=== PATIENT | male | born 1950 | race Two or more races ===

== ENCOUNTER 2018-10-16 17:49 | Emergency (ER) | payer OTHER, MEDICAID ==
[~2018-10-16] VITALS: Ht 167.6 cm; Wt 90.7 kg
[2018-10-16 18:18] VITALS: BP 162/78
[2018-10-16] MEDS ORDERED: TETRACAINE HCL 0.5% OPTH(EYE) SOLN 4ML LEFTEYE ONE (19:00)
[2018-10-16] MEDS ORDERED: FLUORESCEIN SOD 1 MG TEST STRIP EACHEYE ONE (19:00)
== END 2018-10-16 20:00 | disposition home or self-care (01) ==
LOC: ER 17:56
DX: B02.9 Zoster without complications (principal); H10.9 Unspecified conjunctivitis; E11.9 Type 2 diabetes mellitus without complications; I10 Essential (primary) hypertension

== ENCOUNTER 2025-04-13 01:30 | Inpatient (IN) | payer OTHER, MEDICAID ==
[~2025-04-13] VITALS: Ht 167.6 cm; Wt 81.8 kg
[2025-04-13] VITALS (53 sets, daily range): BP systolic 105–135; BP diastolic 51–71; PULSE 59–99; RESP 9–24; TEMP 97.7–99.1; O2SAT 91–100
--- NOTE | 2025-04-13 01:44 | ECG ---
[facility] Test Date: 2025-04-13 Test Time: 01:35:52 Pat Name: AYDE SHIELDS Department: ED Room: 0202T Gender: M Acid Strength Inspector: ALYSSA : 1950 Requested By: ANDREA RAINEY Order Number: [id number] Reading MD: Keegan Garrett Measurements Intervals Strang Rate: 71 P: 60 RI: 175 QRS: -98 QRSD: 165 T: 35 QT: 425 QTc: 462 Interpretive Statements Sinus rhythm RBBB and LAFB Electronically Signed On 04-15-2025 15:08:03 PDT by Keegan Garrett Please click the below link to view image of tracing.
--- NOTE | 2025-04-13 01:47 | ED.PDOC ---
HPI Comments 74-year-old male who came to ER due to chest pains. Patient does have history of hypertension, diabetes and MO. States he has been having intermittent episodes of diffuse chest pain since 4:00 p.m. yesterday, pressure, radiating to bilateral shoulders, associated nausea and shortness a breath. Patient was given 6 tablets of 81 mg aspirin prior to arrival to the ER Chief Complaint: Chest Pain Time Seen by MD: 01:46 Primary Care Provider: FLORENCE Wahl Notes: Nurses Notes Allergies: Coded Allergies: NO KNOWN ALLERGIES (Unverified , 09/08/15) Information Source: Patient Mode of Arrival: Ambulatory Severity: Moderate Timing: Hours Duration: Intermittent Prehospital treatment: ASA Location: Chest (R), Chest (L) Radiation: Shoulder (R), Shoulder (L) Quality: Pressure Onset: With Light Exertion Cardiac Risk Factors: HTN, Diabetes History of: Similar pain in past, MO Associated Signs and Symptoms: SOB, N/V Past Medical History PAST MEDICAL HISTORY: DM, HTN, MO Surgical History: Denies all surgeries Family History Family History: Reviewed,noncontributory to illness Social History Smoker: Non-Smoker Alcohol: Denies ETOH Use Drugs: Denies Drug Use Lives In: Home Constitutional: denies: chills, diaphoresis, fatigue, fever, malaise, sweats, weakness, others EENTM: denies: blurred vision, double vision, ear bleeding, ear discharge, ear drainage, ear pain, ear ringing, eye pain, eye redness, hearing loss, mouth pain, mouth swelling, nasal discharge, nose bleeding, nose congestion, nose pain , photophobia, tearing, throat pain, throat swelling, voice changes, others Respiratory: reports: SOB at rest, shortness of breath; denies: cough, hemoptysis, orthopnea, SOB with excertion, stridor, wheezing, others Cardiovascular: reports: chest pain; denies: dizzy spells, diaphoresis, Dyspnea on exertion, edema, irregular heart beat, left arm pain, lightheadedness, palpitations, PND, syncope, others Gastrointestinal: denies: abdomen distended, abdominal pain, blood streaked bowels, constipated, diarrhea, dysphagia, difficulty swallowing, hematemesis, melena, nausea, poor appetite, poor fluid intake, rectal bleeding, rectal pain, vomiting, others Genitourinary: denies: burning, dysuria, flank pain, frequency, hematuria, incontinence, penile discharge, penile sore, pain, testicle pain, testicle swelling, urgency, others Neurological: denies: dizziness, fainting, headache, left sided numbness, left sided weakness, numbness, paresthesia, pre-existing deficit, right sided numbness, right sided weakness, seizure, speech problems, tingling, tremors, weakness, others Musculoskeletal: denies: back pain, gout, joint pain, joint swelling, muscle pain, muscle stiffness, neck pain, others Integumetry: denies: bruises, change in color, change in hair/nails, dryness, laceration, lesions, lumps, rash, wounds, others Allergic/Immunocompromised: denies: Difficulty Healing, Frequent Infections, Hives, Itching, others Hematologic/Lymphatic: denies: anemia, blood clots, easy bleeding, easy bruising, swollen glands, others Endocrine: denies: excessive hunger, excessive sweating, excessive thirst, excessive urination, flushing, intolerance to cold, intolerance to heat, unexplained weight gain, unexplained weight loss, others Psychiatric: denies: anxiety, bipolar disorder, depression, hopeless, panic disorder, schizophrenia, sleepless, suicidal, others Physical Exam General Appearance: No Apparent Distress, Normal HEENT: Normal ENT Inspection, Pharynx Normal, TMs Normal Neck: Full Range of Motion, Non-Tender, Normal, Normal Inspection Respiratory: Chest Non-Tender, Lungs Clear, No Accessory Muscle Use, No Respiratory Distress, Normal Breath Sounds Cardiovascular: No Edema, No JVD, No Murmur, No Gallop, Normal Peripheral Pulses, Regular Rate/Rhythm Breast Exam: Deferred Gastrointestinal: No Organomegaly, Non Tender, No Pulsatile Mass, Normal Bowel Sounds, Soft Genitalia: Deferred Pelvic: Deferred Rectal: Deferred Extremities: No calf tenderness, Normal capillary refill, Normal inspection, No rmal range of motion, Non-tender, No pedal edema Musculoskeletal : Apperance: Normal Neurologic: Alert, laborer 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 Was a procedure done?: No CP Differential Dx Differential Diagnosis: Angina, Anxiety / Panic Attack Differential Diagnosis: Angina, Chest Wall Pain, Costochondritis, Esophageal reflux/spasm, Gastritis, Myocardial Infarction X-Ray, Labs, Meds, VS Vital Signs Date Time Temp Pulse Resp B/P (MAP) Pulse Ox O2 Delivery O2 Flow Rate FiO2 04/13/25 03:20 63 04/13/25 03:09 98.1 61 16 141/72 (95) 95 98.1 04/13/25 02:39 64 04/13/25 02:35 61 16 141/72 04/13/25 02:05 66 22 156/68 04/13/25 01:51 Nasal Cannula* 2 28 04/13/25 01:51 98.4 70 22 156/68 (97) 95 98.4 04/13/25 01:47 71 04/13/25 01:35 71 04/13/25 01:30 98.2 71 18 156/68 95 98.2 Lab Test 04/13/25 03:03 04/13/25 01:54 Range/Units White Blood Count Pending 13.5 H 4.4-10.8 10^3/uL Red Blood Count Pending 5.54 4.5-5.90 10^6/uL Hemoglobin Pending 17.5 13.5-17.5 g/dL Hematocrit Pending 50.3 41.0-53.0 % Mean Corpuscular Volume Pending 90.9 80.0-100.0 fL Mean Corpuscular Hemoglobin Pending 31.6 28.0-32.0 pg Mean Corpuscular Hemoglobin Concent Pending 34.8 32.0-36.0 g/dL Red Cell Distribution Width Pending 13.8 11.8-14.3 % Platelet Count Pending 170 140-450 10^3/uL Mean Platelet Volume Pending 8.4 6.9-10.8 fL Neutrophils (%) (Auto) Pending 83.8 H 37.0-80.0 % Lymphocytes (%) (Auto) Pending 9.7 L 10.0-50.0 % Monocytes (%) (Auto) Pending 5.9 0.0-12.0 % Basophils (%) (Auto) Pending 0.4 0.0-2.0 % Neutrophils # (Auto) Pending 11.3 H 1.6-8.6 10 ^3/uL Lymphocytes # (Auto) Pending 1.3 0.4-5.4 10 ^3/uL Monocytes # (Auto) Pending 0.8 0-1.3 10 ^3/uL Prothrombin Time Pending Prothrombin Time INR Pending Activated Partial Thromboplast Time Pending Sodium Level Pending 135 L 136-145 mmol/L Potassium Level Pending 4.3 3.5-5.1 mmol/L Chloride Level Pending 97 L 98-107 mmol/L Carbon Dioxide Level Pending 26 20-31 mmol/L Anion Gap Pending 12 5-15 Blood Urea Nitrogen Pending 11 9-23 mg/dL Creatinine Pending 1.01 0.700-1.30 mg/dL Glomerular Filtration Rate Calc Pending 79 >90 mL/min BUN/Creatinine Ratio Pending 10.9 10.0-20.0 Serum Glucose Pending 173 H 74-106 mg/dL Calcium Level Pending 9.4 8.7-10.4 mg/dL Total Bilirubin Pending 1.8 H 0.2-1.0 mg/dL Aspartate Amino Transferase (AST) Pending 281 H 13-40 U/L Alanine Aminotransferase (ALT) Pending 48 H 7-40 U/L Alkaline Phosphatase Pending 56 46-116 U/L Troponin I High Sensitivity Pending > 71838 *H </=54 ng/L Total Protein Pending 7.7 5.7-8.2 g/dL Albumin Pending 4.9 H 3.2-4.8 g/dL Eosinophils (%) (Auto) 0.2 0.0-7.0 % Eosinophils # (Auto) 0 0-0.8 10 ^3/uL Basophils # (Auto) 0 0-0.2 10 ^3/uL Nucleated Red Blood Cells 0.1 % B-Type Natriuretic Peptide Pending Lipase 37 12-53 U/L Current Medications Medications (Trade) Dose Ordered Sig/Marlin Route Start Time Stop Time Status Last Admin Ondansetron HCl (Zofran) 4 mg ONCE ONCE IV 04/13/25 01:45 04/13/25 01:46 DC 04/13/25 02:06 Hydromorphone HCl (Dilaudid Injection) 0.5 mg ONCE ONCE IV 04/13/25 01:45 04/13/25 01:46 DC 04/13/25 02:05 Heparin Sodium (Porcine) 4,000 units ONCE ONCE IV 04/13/25 03:30 04/13/25 03:31 DC 04/13/25 03:37 CHEST RADIOGRAPH Indication: chest pain Technique: Single frontal view of the chest was obtained COMPARISON: None FINDINGS: Lines and Tubes: None Lungs: Clear Pleura: No effusion. No pneumothorax. Cardiomediastinal contours: Unremarkable Bones: Unremarkable IMPRESSION: 1. No acute disease. Time of 1ST Reevaluation: 01:43 Reevaluation 1ST: Unchanged Patient Education/Counseling: Diagnosis, Treatment Family Education/Counseling: Diagnosis, Treatment SEPSIS Sepsis Screen Physician Orders Electrocardigram (04/13/25 02:42) Electrocardigram (04/13/25 04:42) B-Type Natriuretic Peptide (04/13/25 01:42) Chest Portable (04/13/25 01:42) Troponin-I Hs (04/13/25 03:36) Troponin-I Hs (04/13/25 05:36) * Cardiology Consult (04/13/25 03:13) Platelet Monitoring (04/13/25 03:30) Heparin Per Standardized Proce (04/13/25 03:30) Discontinue All Im Injections (04/13/25 03:30) PTPTT (04/13/25 03:30) Heparin Drip/D5w 100units/Ml (04/13/25 03:30) Stat Ekg For Chest Pain (04/13/25 03:30) Complete Blood Count (04/13/25 03:37) Comprehensive Metabolic Panel (04/13/25 03:37) Losartan Tablet (Cozaar Tablet) (04/13/25 10:00) Atorvastatin (Lipitor) (04/13/25 22:00) Famotidine Injection (Pepcid Injection) (04/13/25 10:00) Metoprolol Tartrate Tablet (Lopressor Ta (04/13/25 10:00) Aspirin Tablet (04/13/25 10:00) Cl Left Heart Cath (04/13/25 03:56) Vital Signs Date Time Temp Pulse Resp B/P (MAP) Pulse Ox O2 Delivery O2 Flow Rate FiO2 04/13/25 03:20 63 04/13/25 03:09 98.1 61 16 141/72 (95) 95 98.1 04/13/25 02:39 64 04/13/25 02:35 61 16 141/72 04/13/25 02:05 66 22 156/68 04/13/25 01:51 Nasal Cannula* 2 28 04/13/25 01:51 98.4 70 22 156/68 (97) 95 98.4 04/13/25 01:47 71 04/13/25 01:35 71 04/13/25 01:30 98.2 71 18 156/68 95 98.2 Laboratory Tests Test 04/13/25 01:54 04/13/25 03:03 White Blood Count 13.5 10^3/uL (4.4-10.8) H Pending Medications Medications Dose Ordered Sig/Marlin Route Start Time Stop Time Status Last Admin Dose Admin Heparin Sodium (Porcine) 4,000 units ONCE ONCE IV 04/13/25 03:30 04/13/25 03:31 DC 04/13/25 03:37 Hydromorphone HCl 0.5 mg ONCE ONCE IV 04/13/25 01:45 04/13/25 01:46 DC 04/13/25 02:05 Ondansetron HCl 4 mg ONCE ONCE IV 04/13/25 01:45 04/13/25 01:46 DC 04/13/25 02:06 Departure 1 Departure Time of Disposition: 04:26 (Patient presented with chest pain that began earlier today. Patient initially reported that his chest pain was much improved and he is feeling better upon arrival. Initial EKG with right bundle and left bundle and some ST depressions and elevations. Given patient's well appearance and has a repeat EKG. Patient's repeat EKGs had worsening ST elevations and depressions. [place] [address]. Activated a STEMI. Patient was emergently taken to the laboratory worker.) Impression: Primary Impression: STEMI (ST elevation myocardial infarction) Qualified Codes: I21.3 - ST elevation (STEMI) myocardial infarction of unspecified site Additional Impression: Acute chest pain Disposition: ADMITTED INPATIENT Admit to: Train Announcer Condition: Critical Critical Care Note Critical Care Time?: Yes (35 min-critical care time only) Critical care comment: STEMI Authorized and Performed by: Andrea Rainey MD Total critical care time: Approximately 47 minutes Due to a high probability of clinically significant, life threatening deterioration, the patient required my highest level of preparedness to intervene emergently and I personally spent this critical care time directly and personally managing the patient. This critical care time included obtaining a history; examining the patient; pulse oximetry; ordering and review of studies; arranging urgent treatment with development of a management plan; evaluation of patient's response to treatment; frequent reassessment; and, discussions with other providers. This critical care time was performed to assess and manage the high probability of imminent, life-threatening deterioration that could result in multi-organ failure. It was exclusive of separately billable procedures and treating other patients and teaching time. Please see my other sections and the rest of the note for further information on patient assessment and treatment. Stability Stability form required: No Heart Score Heart Score: Heart Score Response (Comments) Value History Moderate Suspicious [address]-Deviation 2 Age >65 2 Risk Factors >3 or Hx ASHD 2 Troponin Normal limit 0 Total 7 I personally scribed for ANDREA RAINEY MD ([facility] on 04/13/25 at 01:47. Electronically submitted by Romero Moreno ([email or web address]). I personally scribed for ANDREA RAINEY MD ([email or web address]) on 04/13/25 at 02:55. Electronically submitted by Romero Moreno ([email or web address]). ANDREA RAINEY MD Apr 13, 2025 01:47
[2025-04-13 02:00] LABS: Hematocrit 50.3 % (41.0-53.0); Hemoglobin 17.5 g/dL (13.5-17.5); Mean Corpuscular Hemoglobin 31.6 pg (28.0-32.0); Mean Corpuscular Volume 90.9 fL (80.0-100.0); Nucleated Red Blood Cells % 0.1 %
[2025-04-13] MEDS: HYDROmorphone HCL 2 MG/ML VL/or syr IV ONE (02:05)
[2025-04-13] MEDS: ONDANSETRON HCL 4 MG/2 ML VIAL IV ONE (02:06)
[2025-04-13 02:17] LABS: Alkaline Phosphatase 56 U/L (46-116); Anion Gap 12 (5-15); BUN/Creatinine Ratio 10.9 (10.0-20.0); Blood Urea Nitrogen 11 mg/dL (9-23); Calcium 9.4 mg/dL (8.7-10.4); Carbon Dioxide 26 mmol/L (20-31); Potassium 4.3 mmol/L (3.5-5.1); Total Protein 7.7 g/dL (5.7-8.2)
[2025-04-13 02:22] LABS: Alanine Aminotransferase 48 U/L (7-40); Albumin 4.9 g/dL (3.2-4.8); Bilirubin, Total 1.8 mg/dL (0.2-1.0); Chloride 97 mmol/L (98-107); Glucose 173 mg/dL (74-106); Sodium 135 mmol/L (136-145)
--- NOTE | 2025-04-13 02:25 | DVH ---
CHEST RADIOGRAPH Indication: chest pain Technique: Single frontal view of the chest was obtained COMPARISON: None FINDINGS: Lines and Tubes: None Lungs: Clear Pleura: No effusion. No pneumothorax. Cardiomediastinal contours: Unremarkable Bones: Unremarkable IMPRESSION: 1. No acute disease.
[2025-04-13] MEDS: HEPARIN SODIUM (PORCINE) 5000 UNITS/ML 1ML VIAL IV ONE (03:37)
[2025-04-13] MEDS ORDERED: HYDROcodone-ACET 5/325MG TAB PO PRN ×2 (04:00→06:00)
[2025-04-13] MEDS ORDERED: DEXTROSE (50%) 50ML SYRG IV PRN (04:00)
[2025-04-13] MEDS ORDERED: ACETAMINOPHEN 325 MG TAB PO PRN (04:00)
[2025-04-13] MEDS ORDERED: NITROGLYCERIN 0.4 MG SL TAB SL PRN (04:00)
[2025-04-13] MEDS ORDERED: MORPHINE SULFATE INJ 2 MG/ml SYRG IV PRN (04:00)
[2025-04-13] MEDS ORDERED: ONDANSETRON HCL 4 MG/2 ML VIAL IV PRN ×2 (04:00→06:00)
[2025-04-13] MEDS ORDERED: DOCUSATE SOD 100 MG CAP PO PRN (04:00)
[2025-04-13] MEDS: IODIXANOL 320MG/ML 100ML BTL IV ONE ×3 (04:01→05:19)
[2025-04-13] MEDS: HEPARIN IN NS 1000Units/500mL 1,500 ML ONE (04:01)
[2025-04-13] MEDS: MIDAZOLAM HCL 2MG/2ML 2ml VIAL (1mg/ml) ONE (04:02)
[2025-04-13] MEDS: LIDOCAINE 2%HCL (LOCAL ANESTH.) INJ 20ML MDV ONE ×2 (04:02→05:34)
[2025-04-13] MEDS: fentaNYL CITRATE 100 MCG/2 ML VL ONE (04:02)
[2025-04-13] MEDS: ANGIOMAX 250 MG VIAL IV ONE (04:03)
[2025-04-13] MEDS: SODIUM CHL 0.9% 50 ML ONE (04:03)
--- NOTE | 2025-04-13 04:03 | DVHHP2 ---
History of Present Illness Reason for Visit: Acute chest pain History of Present Illness The patient is a 74-year-old male with past medical history of [place], diabetes mellitus, and hypertension who presented to [facility] ED with complaint of chest pain. Patient reports he has been experiencing intermittent episode of diffuse chest pain for the past 1 day, rating 8/10 numeric scale, pressure-like sensation, radiating to bilateral shoulder, associated with nausea, shortness of breaths, getting worse that prompted this visit. Patient was seen and evaluated in the ED, laboratory data shows WBC 13.5, platelets 170, sodium 135, potassium 4.3, BUN 11, creatinine 1.01, glucose 173, calcium 9.4, AST 281, ALT 48, troponin > 91010, lipase 37, Initial EKG with right bundle and left bundle and some ST depressions and elevations. Patient's repeat EKGs had worsening ST [place]ations and depressions [place] [address], activated code STEMI. Patient was emergently taken to the organic lab worker. Chest x-ray showed no acute disease. On my assessment, patient denied chest pain at this moment, no headache, dizziness, diaphoresis, currently on oxygen, no diarrhea, nausea, vomiting, fever, chills. Patient was admitted for further evaluation and medical management. Past Medical History DM, HTN, [place] Past Surgical History Denies all surgeries Family History Reviewed, noncontributory to the management of this case. Past Social History The patient lives at home, denies smoking, alcohol or illicit drugs abuse. Review of Systems Constitutional: Yes: Weakness; No: Fever, Chills, Sweats, Malaise, Other Eyes: No: Pain, Vision change, Conjunctivae inflammation, Eyelid inflammation, Other, Redness ENT: No: Ear pain, Ear discharge, Nose pain, Nose discharge, Nose congestion, Mouth pain, Mouth swelling, Throat pain, Throat swelling, Other Respiratory: Shortness of breath, Other (SOB at rest); No: Cough, Dry, SOB with excertion, Wheezing, Hemoptysis, Pleuritic Pain, Sputum, Wheezing Cardiovascular: Chest Pain; No: Palpitations, Orthopnea, Paroxysmal Noc. Dyspnea, Edema, Lt Headedness, Other Gastrointestinal: No: Nausea, Vomiting, Abdominal Pain, Diarrhea, Constipation, Melena, Hematochezia, Other Genitourinary: No Dysuria, No Frequency, No Incontinence, No Hematuria, No Retention, No Other Musculoskeletal: No: other, neck pain, shoulder pain, arm pain, back pain, hand pain, leg pain, foot pain Skin: No: Rash, Lesions, Jaundice, Bruising, Other Neurological: No: Weakness, Numbness, Incoordination, Change in speech, Confusion, Seizures, Other Allergies: Coded Allergies: NO KNOWN ALLERGIES (Unverified , 09/08/15) Medications Current Medications Medications Dose Ordered Sig/Marlin Route Start Time Stop Time Status Last Admin Dose Admin Heparin Sodium/ Dextrose 250 ml @ 9.6 mls/hr Q24H IV 04/13/25 03:30 UNV Exam Vital Signs Vital Signs Date Time Temp Pulse Resp B/P (MAP) Pulse Ox O2 Delivery O2 Flow Rate FiO2 04/13/25 03:20 63 04/13/25 03:09 98.1 16 141/72 (95) 95 98.1 04/13/25 01:51 Nasal Cannula* 2 28 General Appearance: Alert, Oriented X3, Cooperative, No acute distress HEENT: Atraumatic, PERRLA, EOMI, Mucous membr. moist/pink Respiratory: Normal air movement Cardiovascular: Regular rate, Normal S1, Normal S2, No murmurs Abdominal: Normal bowel sounds, Soft, No tenderness, No hepatospenomegaly, No masses Extremities: No clubbing, No cyanosis, No edema, Normal pulses, No tenderness/swelling Skin: No rashes, No breakdown, No significant lesion Neuro: Normal speech, Normal tone, Sensation intact, Cranial nerves 3-12 NL, Reflexes 2+, Other (Generalized weakness) Psych/Mental Status: Mental status NL, Mood NL Labs/Xrays Labs Test 04/13/25 03:03 04/13/25 01:54 Range/Units White Blood Count 13.5 H 4.4-10.8 10^3/uL Red Blood Count 5.54 4.5-5.90 10^6/uL Hemoglobin 17.5 13.5-17.5 g/dL Hematocrit 50.3 41.0-53.0 % Mean Corpuscular Volume 90.9 80.0-100.0 fL Mean Corpuscular Hemoglobin 31.6 28.0-32.0 pg Mean Corpuscular Hemoglobin Concent 34.8 32.0-36.0 g/dL Red Cell Distribution Width 13.8 11.8-14.3 % Platelet Count 170 140-450 10^3/uL Mean Platelet Volume 8.4 6.9-10.8 fL Neutrophils (%) (Auto) 83.8 H 37.0-80.0 % Lymphocytes (%) (Auto) 9.7 L 10.0-50.0 % Monocytes (%) (Auto) 5.9 0.0-12.0 % Eosinophils (%) (Auto) 0.2 0.0-7.0 % Basophils (%) (Auto) 0.4 0.0-2.0 % Neutrophils # (Auto) 11.3 H 1.6-8.6 10 ^3/uL Lymphocytes # (Auto) 1.3 0.4-5.4 10 ^3/uL Monocytes # (Auto) 0.8 0-1.3 10 ^3/uL Eosinophils # (Auto) 0 0-0.8 10 ^3/uL Basophils # (Auto) 0 0-0.2 10 ^3/uL Nucleated Red Blood Cells 0.1 % Sodium Level 135 L 136-145 mmol/L Potassium Level 4.3 3.5-5.1 mmol/L Chloride Level 97 L 98-107 mmol/L Carbon Dioxide Level 26 20-31 mmol/L Anion Gap 12 5-15 Blood Urea Nitrogen 11 9-23 mg/dL Creatinine 1.01 0.700-1.30 mg/dL Glomerular Filtration Rate Calc 79 >90 mL/min BUN/Creatinine Ratio 10.9 10.0-20.0 Serum Glucose 173 H 74-106 mg/dL Calcium Level 9.4 8.7-10.4 mg/dL Total Bilirubin 1.8 H 0.2-1.0 mg/dL Aspartate Amino Transferase (AST) 281 H 13-40 U/L Alanine Aminotransferase (ALT) 48 H 7-40 U/L Alkaline Phosphatase 56 46-116 U/L Total Protein 7.7 5.7-8.2 g/dL Albumin 4.9 H 3.2-4.8 g/dL Lipase 37 12-53 U/L PATIENT: AYDE SHIELDS ACCT: [id number] UNIT: [id number] : 1950 LOC: ER ROOM / BED: / AGE / SEX: 74 / M ADM STATUS: REG ER SERVICE 1 ORDERING PHYSICIAN: ANDREA RAINEY MD PROCEDURE(s): CXRP - CHEST PORTABLE REASON: chest pain ORDER NUMBER(s): [id number], ACCESSION NUMBER(s): [id number] CHEST RADIOGRAPH Indication: chest pain Technique: Single frontal view of the chest was obtained COMPARISON: None FINDINGS: Lines and Tubes: None Lungs: Clear Pleura: No effusion. No pneumothorax. Cardiomediastinal contours: Unremarkable Bones: Unremarkable IMPRESSION: 1. No acute disease. SEPSIS Sepsis Screen Date sepsis recognized/suspect: Apr 13, 2025 Time Sepsis recognized/suspect: 015 Recent Procedure: No On Antibiotic Therapy: No Respiratory Rate >20: No Heart Rate >90: No Temp<36 C (96.8 F) or >38.3 C: No SBP <90 or MAP <65 mmHG: No New Acute Mental Status Change: No Is the patient on CPAP, BIPAP,: No Physician Orders Electrocardigram (04/13/25 02:42) Electrocardigram (04/13/25 04:42) B-Type Natriuretic Peptide (04/13/25 01:42) Chest Portable (04/13/25 01:42) Troponin-I Hs (04/13/25 03:36) Troponin-I Hs (04/13/25 05:36) * Cardiology Consult (04/13/25 03:13) Platelet Monitoring (04/13/25 03:30) Heparin Per Standardized Proce (04/13/25 03:30) Discontinue All Im Injections (04/13/25 03:30) PTPTT (04/13/25 03:30) Heparin Drip/D5w 100units/Ml (04/13/25 03:30) Stat Ekg For Chest Pain (04/13/25 03:30) Complete Blood Count (04/13/25 03:37) Comprehensive Metabolic Panel (04/13/25 03:37) Losartan Tablet (Cozaar Tablet) (04/13/25 10:00) Atorvastatin (Lipitor) (04/13/25 22:00) Famotidine Injection (Pepcid Injection) (04/13/25 10:00) Metoprolol Tartrate Tablet (Lopressor Ta (04/13/25 10:00) Aspirin Tablet (04/13/25 10:00) Cl Left Heart Cath (04/13/25 03:56) Glucose Blood (Accu-Chek Comfort Curve T (04/13/25 07:00) Mild Sliding Scale (04/13/25 07:00) Dextrose 50% Syringe (04/13/25 04:00) Admit (04/13/25 03:59) Allergies (04/13/25 03:59) Code Status (04/13/25 03:59) 0.9% Ns 1000 Ml (04/13/25 04:00) Oxygen Per Hour (04/13/25 03:59) Hydrocodone-Acet 5/325mg Tab (Elrod 5/32 (04/13/25 04:00) Ondansetron Hcl (Zofran) (04/13/25 04:00) Docusate Sodium Capsule (Colace Capsule) (04/13/25 04:00) Fall Risk Precautions In Place QSHIFT (04/13/25 03:59) Complete Blood Count (04/14/25 04:00) Comprehensive Metabolic Panel (04/14/25 04:00) Cardiac Diet-2gna,Lofat,Lochol (04/13/25 Breakfast) Condition: Critical (04/13/25 03:59) Acetaminophen Tablet (Tylenol Tablet) (04/13/25 04:00) Maintain Bed Rest (04/13/25 03:59) Sequential Compression Device (04/13/25 ) Nitroglycerin Sublingual (Ntrostat Subli (04/13/25 04:00) Vital Signs Date Time Temp Pulse Resp B/P (MAP) Pulse Ox O2 Delivery O2 Flow Rate FiO2 04/13/25 03:20 63 04/13/25 03:09 98.1 61 16 141/72 (95) 95 98.1 04/13/25 02:39 64 04/13/25 02:35 61 16 141/72 04/13/25 02:05 66 22 156/68 04/13/25 01:51 Nasal Cannula* 2 28 04/13/25 01:51 98.4 70 22 156/68 (97) 95 98.4 04/13/25 01:47 71 04/13/25 01:35 71 04/13/25 01:30 98.2 71 18 156/68 95 98.2 Laboratory Tests Test 04/13/25 01:54 White Blood Count 13.5 10^3/uL (4.4-10.8) H Medications Medications Dose Ordered Sig/Marlin Route Start Time Stop Time Status Last Admin Dose Admin Heparin Sodium (Porcine) 4,000 units ONCE ONCE IV 04/13/25 03:30 04/13/25 03:31 DC 04/13/25 03:37 4,000 UNITS Hydromorphone HCl 0.5 mg ONCE ONCE IV 04/13/25 01:45 04/13/25 01:46 DC 04/13/25 02:05 0.5 MG Ondansetron HCl 4 mg ONCE ONCE IV 04/13/25 01:45 04/13/25 01:46 DC 04/13/25 02:06 4 MG Assessment/Plan Assessment/Plan Acute chest pain STEMI (ST elevation myocardial infarction) Hyperglycemia Leukocytosis, unspecified Generalized weakness Elevated liver enzymes ST elevation (STEMI) myocardial infarction of unspecified site Plan 1. Admit to intensive care unit 2. Breathing treatment 3. Pain control management 4. IV antibiotic management 5. Management of fluids and electrolytes 6. Consultation for Cardiology/GI 7. Diagnostic test chest x-ray 8. DVT prophylaxis-on heparin drip 9. Repeat labs CBC, CMP in a.m. 10. Home medication reviewed and reconciled 11. Continue with current medical management 12. Treatment plan discussed with patient and RN. Patient verbalized understanding. Plan discussed with: Patient, Other (RN) My Orders Orders - MALCOLM GOLDBERG DNP Procedure Category Date Status Time Complete Blood Count LAB 04/13/25 Verified 03:37 Comprehensive LAB 04/13/25 Verified Metabolic Panel 03:37 Losartan Tablet PHA 04/13/25 Verified (Cozaar Tablet) 10:00 Atorvastatin (Lipitor) PHA 04/13/25 Verified 22:00 Famotidine Injection PHA 04/13/25 Verified (Pepcid Injection) 10:00 Metoprolol Tartrate PHA 04/13/25 Verified Tablet (Lopressor Ta 10:00 Aspirin Tablet PHA 04/13/25 Verified 10:00 Glucose Blood PHA 04/13/25 Verified (Accu-Chek Comfort 07:00 Mild Sliding Scale PHA 04/13/25 Verified 07:00 Dextrose 50% Syringe PHA 04/13/25 Verified 04:00 Admit ADMIT 04/13/25 Verified 03:59 Allergies LETTY 04/13/25 Verified 03:59 Code Status CODE 04/13/25 Verified 03:59 0.9% Ns 1000 Ml PHA 04/13/25 Verified 04:00 Oxygen Per Hour RT 04/13/25 Verified 03:59 Hydrocodone-Acet PHA 04/13/25 Verified 5/325mg Tab (Elrod 04:00 Ondansetron Hcl PHA 04/13/25 Verified (Zofran) 04:00 Docusate Sodium PHA 04/13/25 Verified Capsule (Colace 04:00 Fall Risk Precautions LETTY 04/13/[address] 03:59 Complete Blood Count LAB 04/14/25 Verified 04:00 Comprehensive LAB 04/14/25 Verified Metabolic Panel 04:00 Cardiac DIET 04/13/25 Verified Diet-2gna,Lofat,Lochol Breakfast Condition: Critical LETTY 04/13/25 Verified 03:59 Acetaminophen Tablet PHA 04/13/25 Verified (Tylenol Tablet) 04:00 Maintain Bed Rest LETTY 04/13/25 Verified 03:59 Sequential LETTY 04/13/25 Verified Compression Device Nitroglycerin PHA 04/13/25 Verified Sublingual (Ntrostat 04:00 Problem List: (1) Acute chest pain (2) STEMI (ST elevation myocardial infarction) (3) Hyperglycemia (4) Leukocytosis, unspecified (5) Elevated liver enzymes (6) Generalized weakness (7) ST elevation (STEMI) myocardial infarction of unspecified site Date of Service: Apr 13, 2025 Billing Provider: MALCOLM GOLDBERG DNP Common Visit Codes: [id number] INP/OBS CARE (HIGH) MALCOLM GOLDBERG DNP Apr 13, 2025 04:03
[2025-04-13 04:26] LABS: Hematocrit 48.6 % (41.0-53.0); Hemoglobin 16.9 g/dL (13.5-17.5); Mean Corpuscular Hemoglobin 31.7 pg (28.0-32.0); Mean Corpuscular Volume 91.5 fL (80.0-100.0); Nucleated Red Blood Cells % 0.1 %
[2025-04-13 04:44] LABS: Albumin 4.5 g/dL (3.2-4.8); Alkaline Phosphatase 51 U/L (46-116); Anion Gap 16 (5-15); BUN/Creatinine Ratio 17.6 (10.0-20.0); Blood Urea Nitrogen 15 mg/dL (9-23); Calcium 9.0 mg/dL (8.7-10.4); Carbon Dioxide 21 mmol/L (20-31); Chloride 99 mmol/L (98-107); Potassium 4.3 mmol/L (3.5-5.1); Total Protein 6.8 g/dL (5.7-8.2)
[2025-04-13] MEDS: EPTIFIBATIDE INJ (2MG/ML) 10ML VIAL IV ONE (05:02)
[2025-04-13 05:12] LABS: Alanine Aminotransferase 49 U/L (7-40); Bilirubin, Total 1.6 mg/dL (0.2-1.0); Glucose 159 mg/dL (74-106); Sodium 136 mmol/L (136-145)
[2025-04-13 05:26] LABS: INR 1.03 (0.9-1.15); Partial Thromboplastin Time 31.6 SEC (24.5-34.5); Prothrombin Time 10.9 sec (9.3-11.8)
[2025-04-13] MEDS: TICAGRELOR 90 MG TAB ONE (05:27)
[2025-04-13] MEDS ORDERED: METOPROLOL TARTRATE 25 MG TAB PO SCH (06:00)
[2025-04-13] MEDS ORDERED: PANTOPRAZOLE 40 MG TAB PO SCH (06:00)
[2025-04-13] MEDS ORDERED: HEPARIN DRIP/D5W 100UNITS/ML 250 ML IV SCH (06:00)
[2025-04-13] MEDS: InsuLIN REG 1unit/0.01ml Soln (100units/ml) SC SCH (07:00)
--- NOTE | 2025-04-13 07:10 | ECG ---
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
[2025-04-13] MEDS: ACCU-CHEK COMFORT CURVE STRIP VI SCH (07:17)
[2025-04-13] MEDS: METOPROLOL TARTRATE 25 MG TAB PO SCH (07:39)
[2025-04-13] MEDS: ENOXAPARIN SOD 40 MG/0.4 ML SYRINGE SC SCH (08:22)
[2025-04-13] MEDS: FAMOTIDINE (10MG/ML) 2ML VL IV SCH (08:22)
[2025-04-13] MEDS: LOSARTAN POTASSIUM 50 MG TAB PO SCH (08:23)
[2025-04-13] MEDS: TICAGRELOR 90 MG TAB PO SCH (08:23)
[2025-04-13] MEDS: SODIUM CHLORIDE 0.9% 1,000 ML IV SCH (09:41)
[2025-04-13] MEDS ORDERED: TICAGRELOR 90 MG TAB PO SCH (10:00)
[2025-04-13] MEDS ORDERED: ENOXAPARIN SOD 40 MG/0.4 ML SYRINGE SC SCH (10:00)
[2025-04-13] MEDS ORDERED: ASPirin-EC 81 mg tab PO SCH (10:00)
--- NOTE | 2025-04-13 17:04 | DVHINCON2 ---
Date of service: Apr 13, 2025 Referring Physician Kaye Stratton Reason for Consultation Elevated liver enzymes History of Present Illness The patient is a 74-year-old male with past medical history of [place], diabetes mellitus, and hypertension who presented to [facility] coplaints of intermittent episodes of diffuse chest pain for the past 1 day, rating 8/10 numeric scale, pressure-like sensation, radiating to bilateral shoulder, associated with nausea, shortness of breaths, getting worse that prompted this visit. Patient was diagnosed with STEMI with elevated ST elevations and troponins greater than 91038 that activated code STEMI. Patient was emergently taken to the cathead operator. Patient had a coronary stent placed. He is currently seen PORFIRIO stable awake alert and responsive. He denies any nausea vomiting diarrhea or shortness of breath at this time GI was consulted because of elevated liver enzymes. Patient's denies any prior history of liver disease and denies drinking alcohol Past Medical History Past Medical History DM, HTN, [place] Past Surgical History Past Surgical History Denies all surgeries Allergies: Coded Allergies: NO KNOWN ALLERGIES (Unverified , 09/08/15) Current Medications Current Medications Medications (Trade) Dose Ordered Sig/Marlin Route PRN Reason Start Time Stop Time Status Last Admin Heparin Sodium/ Dextrose 250 ml @ 10 mls/hr Q24H IV 04/13/25 06:00 04/13/25 06:21 DC Losartan Potassium (Cozaar Tablet) 50 mg DAILY PO 04/13/25 10:00 04/13/25 08:23 Atorvastatin Calcium (Lipitor) 40 mg HS PO 04/13/25 22:00 Famotidine (Pepcid Injection) 20 mg Q12HR IV 04/13/25 10:00 04/13/25 08:22 Metoprolol Tartrate (Lopressor Tablet) 25 mg BID PO 04/13/25 10:00 04/13/25 09:43 Aspirin 81 mg DAILY PO 04/13/25 10:00 04/13/25 08:23 Diagnostic Test (Pha) (Accu-Chek Comfort Curve T) 1 strip ACHS 04/13/25 07:00 04/13/25 10:55 Insulin Human Regular (InsuLIN R) ACHS SC 04/13/25 07:00 04/13/25 11:02 Dextrose 50 ml UD PRN IV Blood Sugar LESS THAN 60 04/13/25 04:00 Sodium Chloride 1,000 ml @ 60 mls/hr [id number] IV 04/13/25 04:00 04/13/25 09:41 Acetaminophen/ Hydrocodone Bitart ([place] 5/325MG Tab) 1 tab Q4HP PRN PO MODERATE PAIN (4-6 PAIN SCALE) 04/13/25 04:00 Ondansetron HCl (Zofran) 4 mg Q4HP PRN IV NAUSEA / VOMITING 04/13/25 04:00 Docusate Sodium (Colace Capsule) 100 mg BIDPRN PRN PO FOR CONSTIPATION 04/13/25 04:00 Acetaminophen (Tylenol Tablet) 650 mg Q6HP PRN PO PAIN SCALE 1-3 OR TEMP>100.4 04/13/25 04:00 Nitroglycerin (Ntrostat Sublingual) 0.4 mg Q5MINP PRN SL FOR CHEST PAIN 04/13/25 04:00 Morphine Sulfate 2 mg Q30M PRN IV FOR CHEST PAIN 04/13/25 04:00 Ceftriaxone Sodium 50 ml @ 100 mls/hr DAILY@09 IV 04/14/25 09:00 Acetaminophen/ Hydrocodone Bitart ([place] 5/325MG Tab) 1 tab Q4HP PRN PO MODERATE PAIN (4-6 PAIN SCALE) 04/13/25 06:00 04/13/25 06:10 DC Ondansetron HCl (Zofran) 4 mg Q4HP PRN IV NAUSEA / VOMITING 04/13/25 06:00 04/13/25 06:11 DC Ticagrelor (Brilinta) 90 mg BID PO 04/13/25 10:00 04/13/25 06:11 DC Aspirin (Ecotrin Enteric Coated Tablet) 81 mg DAILY PO 04/13/25 10:00 04/13/25 06:11 DC Metoprolol Tartrate (Lopressor Tablet) 12.5 mg TID PO 04/13/25 06:00 04/13/25 06:11 DC Atorvastatin Calcium (Lipitor) 80 mg HS PO 04/13/25 22:00 04/13/25 06:11 DC Pantoprazole Sodium (Protonix Tablet) 40 mg DAILY@0600 PO 04/13/25 06:00 04/13/25 06:11 DC Enoxaparin Sodium (Lovenox) 40 mg DAILY SC 04/13/25 10:00 04/13/25 06:11 DC Enoxaparin Sodium (Lovenox) 40 mg DAILY SC 04/13/25 10:00 04/13/25 08:22 Ticagrelor (Brilinta) 90 mg BID PO 04/13/25 10:00 04/13/25 08:23 Vital Signs Vital Signs Date Time Temp Pulse Resp B/P (MAP) Pulse Ox O2 Delivery O2 Flow Rate FiO2 04/13/25 16:00 98.8 68 21 105/54 (71) 93 98.8 04/13/25 15:47 Nasal Cannula* 2 28 Physical Exam General Appearance: Alert, Oriented X3, Cooperative, No acute distress HEENT: Atraumatic, PERRLA, EOMI, Mucous membr. moist/pink Respiratory: Normal air movement Cardiovascular: Regular rate, Normal S1, Normal S2, No murmurs Abdominal: Normal bowel sounds, Soft, No tenderness, No hepatospenomegaly, No masses Extremities: No clubbing, No cyanosis, No edema, Normal pulses, No tenderness/swelling Skin: No rashes, No breakdown, No significant lesion Neuro: Normal speech, Normal tone, Sensation intact, Cranial nerves 3-12 NL, Reflexes 2+, Other (Generalized weakness) Psych/Mental Status: Mental status NL, Mood NL Labs/Diagnostic Data Labs Test 04/13/25 10:49 04/13/25 09:03 04/13/25 03:03 04/13/25 01:54 Range/Units POC Glucose 178 H 70-106 mg/dl Troponin I High Sensitivity > 92501 *H </=54 ng/L White Blood Count 11.9 H 4.4-10.8 10^3/uL Red Blood Count 5.32 4.5-5.90 10^6/uL Hemoglobin 16.9 13.5-17.5 g/dL Hematocrit 48.6 41.0-53.0 % Mean Corpuscular Volume 91.5 80.0-100.0 fL Mean Corpuscular Hemoglobin 31.7 28.0-32.0 pg Mean Corpuscular Hemoglobin Concent 34.7 32.0-36.0 g/dL Red Cell Distribution Width 13.4 11.8-14.3 % Platelet Count 174 140-450 10^3/uL Mean Platelet Volume 8.8 6.9-10.8 fL Neutrophils (%) (Auto) 83.6 H 37.0-80.0 % Lymphocytes (%) (Auto) 10.3 10.0-50.0 % Monocytes (%) (Auto) 5.6 0.0-12.0 % Eosinophils (%) (Auto) 0.1 0.0-7.0 % Basophils (%) (Auto) 0.4 0.0-2.0 % Neutrophils # (Auto) 9.9 H 1.6-8.6 10 ^3/uL Lymphocytes # (Auto) 1.2 0.4-5.4 10 ^3/uL Monocytes # (Auto) 0.7 0-1.3 10 ^3/uL Eosinophils # (Auto) 0 0-0.8 10 ^3/uL Basophils # (Auto) 0.1 0-0.2 10 ^3/uL Nucleated Red Blood Cells 0.1 % Prothrombin Time 10.9 9.3-11.8 sec Prothrombin Time INR 1.03 0.9-1.15 Activated Partial Thromboplast Time 31.6 24.5-34.5 SEC Sodium Level 136 136-145 mmol/L Potassium Level 4.3 3.5-5.1 mmol/L Chloride Level 99 98-107 mmol/L Carbon Dioxide Level 21 20-31 mmol/L Anion Gap 16 H 5-15 Blood Urea Nitrogen 15 9-23 mg/dL Creatinine 0.85 0.700-1.30 mg/dL Glomerular Filtration Rate Calc 92 >90 mL/min BUN/Creatinine Ratio 17.6 10.0-20.0 Serum Glucose 159 H 74-106 mg/dL Calcium Level 9.0 8.7-10.4 mg/dL Total Bilirubin 1.6 H 0.2-1.0 mg/dL Aspartate Amino Transferase (AST) 290 H 13-40 U/L Alanine Aminotransferase (ALT) 49 H 7-40 U/L Alkaline Phosphatase 51 46-116 U/L Total Protein 6.8 5.7-8.2 g/dL Albumin 4.5 3.2-4.8 g/dL B-Type Natriuretic Peptide 374.47 0-100 pg/mL Lipase 37 12-53 U/L Problems(with codes): (1) ST elevation (STEMI) myocardial infarction of unspecified site (2) Elevated liver enzymes (3) Leukocytosis, unspecified (4) Generalized weakness (5) Acute chest pain (6) STEMI (ST elevation myocardial infarction) Plan/Recommendation Assessment plan Likely cause of elevation of liver enzymes is related to his ongoing cardiac ischemia and STEMI Continue to monitor labs Check RUQ USG; check hepatitis panel I will follow pt with u Plan discussed with: Patient, Other (PORFIRIO ) YENNI MAGALLANES MD Apr 13, 2025 17:03
--- NOTE | 2025-04-13 18:04 | DVH ---
INDICATION: elevated liver tests TECHNIQUE: Multiple real-time sonographic images of the abdomen were obtained. COMPARISON: None FINDINGS: The liver is homogenous in echogenicity. The liver measures 14.2 cm. No intrahepatic bilia ry ductal dilatation is noted. The gallbladder wall measures 0.8 cm and is unremarkable. There is a gallstone in the gallbladder m easuring 1.9 x 1.4 x 1.6 cm. The common duct measures 0.42 cm and is unremarkable. No pericholecyst ic fluid is noted. Sonographic brice's sign is negative. The right kidney measures 10.3 cm. No hydronephrosis. The pancreas is not well visualized due to obscuration from bowel gas. IMPRESSION: 1. Normal exam of the abdomen. 2. Cholelithiasis. Negative sonographic Brice's sign.
--- NOTE | 2025-04-13 19:44 | DVHINCON2 ---
Date of service: Apr 13, 2025 Referring Physician Abimael Reason for Consultation STEMI History of Present Illness This is a 74-year-old male with a past medical history of MN, diabetes mellitus, and hypertension who presented to the ED with a complaint of chest pain. Patient reports he has been experiencing intermittent episode of diffuse chest pain for the past 1 day, rating 8/10 numeric scale, pressure-like sensation, radiating to bilateral shoulder, associated with nausea, shortness of breath. WBC 13.5, PLT 170, K 4.3, GLUC 173, CA 9.4, AST 281, ALT 48, lipase 37. Chest x-ray shows NAD. Initial EKG with right bundle and left bundle and some ST depressions and elevations. Patient's repeat EKGs had worsening ST elevations and depressions [place] 104[address], activated code STEMI. Patient was emergently taken to the crime lab analyst. Allergies: Coded Allergies: NO KNOWN ALLERGIES (Unverified , 09/08/15) Current Medications Current Medications Medications (Trade) Dose Ordered Sig/Marlin Route PRN Reason Start Time Stop Time Status Last Admin Heparin Sodium/ Dextrose 250 ml @ 10 mls/hr Q24H IV 04/13/25 06:00 04/13/25 06:21 DC Losartan Potassium (Cozaar Tablet) 50 mg DAILY PO 04/13/25 10:00 04/13/25 08:23 Atorvastatin Calcium (Lipitor) 40 mg HS PO 04/13/25 22:00 Famotidine (Pepcid Injection) 20 mg Q12HR IV 04/13/25 10:00 04/13/25 08:22 Metoprolol Tartrate (Lopressor Tablet) 25 mg BID PO 04/13/25 10:00 04/13/25 09:43 Aspirin 81 mg DAILY PO 04/13/25 10:00 04/13/25 08:23 Diagnostic Test (Pha) (Accu-Chek Comfort Curve T) 1 strip ACHS 04/13/25 07:00 04/13/25 16:57 Insulin Human Regular (InsuLIN R) ACHS SC 04/13/25 07:00 04/13/25 16:58 Dextrose 50 ml UD PRN IV Blood Sugar LESS THAN 60 04/13/25 04:00 Sodium Chloride 1,000 ml @ 60 mls/hr [id number] IV 04/13/25 04:00 04/13/25 09:41 Acetaminophen/ Hydrocodone Bitart (Venus 5/325MG Tab) 1 tab Q4HP PRN PO MODERATE PAIN (4-6 PAIN SCALE) 04/13/25 04:00 Ondansetron HCl (Zofran) 4 mg Q4HP PRN IV NAUSEA / VOMITING 04/13/25 04:00 Docusate Sodium (Colace Capsule) 100 mg BIDPRN PRN PO FOR CONSTIPATION 04/13/25 04:00 Acetaminophen (Tylenol Tablet) 650 mg Q6HP PRN PO PAIN SCALE 1-3 OR TEMP>100.4 04/13/25 04:00 Nitroglycerin (Ntrostat Sublingual) 0.4 mg Q5MINP PRN SL FOR CHEST PAIN 04/13/25 04:00 Morphine Sulfate 2 mg Q30M PRN IV FOR CHEST PAIN 04/13/25 04:00 Ceftriaxone Sodium 50 ml @ 100 mls/hr DAILY@09 IV 04/14/25 09:00 Acetaminophen/ Hydrocodone Bitart (Venus 5/325MG Tab) 1 tab Q4HP PRN PO MODERATE PAIN (4-6 PAIN SCALE) 04/13/25 06:00 04/13/25 06:10 DC Ondansetron HCl (Zofran) 4 mg Q4HP PRN IV NAUSEA / VOMITING 04/13/25 06:00 04/13/25 06:11 DC Ticagrelor (Brilinta) 90 mg BID PO 04/13/25 10:00 04/13/25 06:11 DC Aspirin (Ecotrin Enteric Coated Tablet) 81 mg DAILY PO 04/13/25 10:00 04/13/25 06:11 DC Metoprolol Tartrate (Lopressor Tablet) 12.5 mg TID PO 04/13/25 06:00 04/13/25 06:11 DC Atorvastatin Calcium (Lipitor) 80 mg HS PO 04/13/25 22:00 04/13/25 06:11 DC Pantoprazole Sodium (Protonix Tablet) 40 mg DAILY@0600 PO 04/13/25 06:00 04/13/25 06:11 DC Enoxaparin Sodium (Lovenox) 40 mg DAILY SC 04/13/25 10:00 04/13/25 06:11 DC Enoxaparin Sodium (Lovenox) 40 mg DAILY SC 04/13/25 10:00 04/13/25 08:22 Ticagrelor (Brilinta) 90 mg BID PO 04/13/25 10:00 04/13/25 08:23 Review of Systems Constitutional: denies: chills, diaphoresis, fatigue, fever, malaise, sweats, weakness, others EENTM: denies: blurred vision, double vision, ear bleeding, ear discharge, ear drainage, ear pain, ear ringing, eye pain, eye redness, hearing loss, mouth pain, mouth swelling, nasal discharge, nose bleeding, nose congestion, nose pain, photophobia, tearing, throat pain, throat swelling, voice changes, others Respiratory: reports: SOB at rest, shortness of breath; denies: cough, hem optysis, orthopnea, SOB with excertion, stridor, wheezing, others Cardiovascular: reports: chest pain; denies: dizzy spells, diaphoresis, Dyspnea on exertion, edema, irregular heart beat, left arm pain, lightheadedness, palpitations, PND, syncope, others Gastrointestinal: denies: abdomen distended, abdominal pain, blood streaked bowels, constipated, diarrhea, dysphagia, difficulty swallowing, hematemesis, melena, nausea, poor appetite, poor fluid intake, rectal bleeding, rectal pain, vomiting, others Genitourinary: denies: burning, dysuria, flank pain, frequency, hematuria, incontinence, penile discharge, penile sore, pain, testicle pain, testicle swelling, urgency, others Neurological: denies: dizziness, fainting, headache, left sided numbness, left sided weakness, numbness, paresthesia, pre-existing deficit, right sided numbness, right sided weakness, seizure, speech problems, tingling, tremors, weakness, others Musculoskeletal: denies: back pain, gout, joint pain, joint swelling, muscle pain, muscle stiffness, neck pain, others Integumetry: denies: bruises, change in color, change in hair/nails, dryness, laceration, lesions, lumps, rash, wounds, others Allergic/Immunocompromised: denies: Difficulty Healing, Frequent Infections, Hives, Itching, others Hematologic/Lymphatic: denies: anemia, blood clots, easy bleeding, easy bruising, swollen glands, others Endocrine: denies: excessive hunger, excessive sweating, excessive thirst, excessive urination, flushing, intolerance to cold, intolerance to heat, unexplained weight gain, unexplained weight loss, others Psychiatric: denies: anxiety, bipolar disorder, depression, hopeless, panic disorder, schizophrenia, sleepless, suicidal, others Vital Signs Vital Signs Date Time Temp Pulse Resp B/P (MAP) Pulse Ox O2 Delivery O2 Flow Rate FiO2 04/13/25 18:00 71 21 119/55 (76) 93 04/13/25 17:35 Nasal Cannula* 2 28 04/13/25 16:00 98.8 98.8 Physical Exam GENERAL: Alert and oriented x 3. No acute distress. EYES: PERRL, EOMI. Anicteric. HENT: Moist mucous membranes. LUNGS: Clear to auscultation bilaterally. CARDIOVASCULAR: Regular rate and rhythm. ABDOMEN: Soft, nontender and nondistended. EXTREMITIES: No edema. NEUROLOGIC: No focal neurological deficits. SKIN: Warm, dry. Labs/Diagnostic Data Labs Test 04/13/25 16:55 04/13/25 09:03 04/13/25 03:03 04/13/25 01:54 Range/Units POC Glucose 245 H 70-106 mg/dl Troponin I High Sensitivity > 74340 *H </=54 ng/L White Blood Count 11.9 H 4.4-10.8 10^3/uL Red Blood Count 5.32 4.5-5.90 10^6/uL Hemoglobin 16.9 13.5-17.5 g/dL Hematocrit 48.6 41.0-53.0 % Mean Corpuscular Volume 91.5 80.0-100.0 fL Mean Corpuscular Hemoglobin 31.7 28.0-32.0 pg Mean Corpuscular Hemoglobin Concent 34.7 32.0-36.0 g/dL Red Cell Distribution Width 13.4 11.8-14.3 % Platelet Count 174 140-450 10^3/uL Mean Platelet Volume 8.8 6.9-10.8 fL Neutrophils (%) (Auto) 83.6 H 37.0-80.0 % Lymphocytes (%) (Auto) 10.3 10.0-50.0 % Monocytes (%) (Auto) 5.6 0.0-12.0 % Eosinophils (%) (Auto) 0.1 0.0-7.0 % Basophils (%) (Auto) 0.4 0.0-2.0 % Neutrophils # (Auto) 9.9 H 1.6-8.6 10 ^3/uL Lymphocytes # (Auto) 1.2 0.4-5.4 10 ^3/uL Monocytes # (Auto) 0.7 0-1.3 10 ^3/uL Eosinophils # (Auto) 0 0-0.8 10 ^3/uL Basophils # (Auto) 0.1 0-0.2 10 ^3/uL Nucleated Red Blood Cells 0.1 % Prothrombin Time 10.9 9.3-11.8 sec Prothrombin Time INR 1.03 0.9-1.15 Activated Partial Thromboplast Time 31.6 24.5-34.5 SEC Sodium Level 136 136-145 mmol/L Potassium Level 4.3 3.5-5.1 mmol/L Chloride Level 99 98-107 mmol/L Carbon Dioxide Level 21 20-31 mmol/L Anion Gap 16 H 5-15 Blood Urea Nitrogen 15 9-23 mg/dL Creatinine 0.85 0.700-1.30 mg/dL Glomerular Filtration Rate Calc 92 >90 mL/min BUN/Creatinine Ratio 17.6 10.0-20.0 Serum Glucose 159 H 74-106 mg/dL Calcium Level 9.0 8.7-10.4 mg/dL Total Bilirubin 1.6 H 0.2-1.0 mg/dL Aspartate Amino Transferase (AST) 290 H 13-40 U/L Alanine Aminotransferase (ALT) 49 H 7-40 U/L Alkaline Phosphatase 51 46-116 U/L Total Protein 6.8 5.7-8.2 g/dL Albumin 4.5 3.2-4.8 g/dL B-Type Natriuretic Peptide 374.47 0-100 pg/mL Lipase 37 12-53 U/L Assessment Acute chest pain. STEMI (ST elevation myocardial infarction). Hyperglycemia. Leukocytosis, unspecified. Elevated liver enzymes. Generalized weakness. ST elevation (STEMI) myocardial infarction of unspecified site. Plan/Recommendation I agree with your ongoing assessment and care of plan. Emergent cardiac cath. Risks and benefits discussed with the patient. Echocardiogram. Morphine and Venus for pain management. Aspirin, Lipitor, Brilinta, Metoprolol. IV antibiotics as ordered. DVT prophylactics. Losartan. Additional plan as per the hospital course. Critical care time of 90 minutes provided to include time spent evaluation of patient at bedside, when appropriate patient/family education for diagnosis, treatment plan, review of pertinent medical information and discussion of care with specialty providers and PCP. Plan discussed with: Patient STEVE RAPHAEL MD Apr 13, 2025 19:17
--- NOTE | 2025-04-13 19:49 | DVHPN2 ---
Assessment/Plan Assessment/Plan progress note 74 M with NIDDM, HTN admitted for chest pain as STEMI. s/p PCI CONRAD x1. pending report seen today. no chest pain. pending cath report, echo report. physical exam aox4 comfortable on RA clear breath sounds s1 s2 rrr abdomen tender, soft no LE edema labs ekg imaging reviewed assessment and plan STEMI s/p PCI CONRAD x1 transaminitis NIDDM HTN HFpEF asa brilinta Lipitor start bb resume home meds ISS diet cardiac dvt ppx lovenox condition critical full code crit care time 45 minutes Plan discussed with: Patient My Orders Orders - JERRY CHAMBERS MD Procedure Category Date Status Time Magnesium LAB 04/14/25 Verified 04:00 Date of Service: Apr 13, 2025 Billing Provider: JERRY CHAMBERS MD Common Visit Codes: [id number] CARE 30-74 MIN JERRY CHAMBERS MD Apr 13, 2025 19:49
--- NOTE | 2025-04-13 21:08 | DVHSR ---
APPROVED REPORT EXAM: Two-dimensional and M-mode echocardiogram with Doppler and color Doppler. Blood Pressure: 120/62 mmHg INDICATION Post STEMI RISK FACTORS Height: 5'6", Weight: 180 DIMENSIONS LVDd4.7 (3.8-5.7cm)LA (2D)4.2 (1.9-4.0cm)Aortic Root3.3 (2.0-3.7cm) LVDs3.2 (2.5-4.0cm)LA (MM) (1.9-4.0cm)Aortic Cusp Exc1.6 (1.5-2.0cm) EF (%) 35.0 (55-70%)Rt. Atrium3.6 (1.9-4.0cm)Asc. Aorta cm IVSd1.1 (0.7-1.1cm)RV (D) (1.8-2.4cm) PWd1.1 (0.7-1.1cm) Mitral Valve MitralMitral Stenosis E wave0.72m/sMV Mean GR.mmHg A wave0.62m/sMV Peak GR.mmHg E/A ratio1.22D MVAcm2 DECEL [id number] 1/2 Timems Aortic Valve Aortic ValveAortic Stenosis V10.90m/Justin Mean GR.5mmHg V21.64m/Justin Peak GR.11mmHg LVOT Diameter2.0 (1.8-2.4cm)Doppler AVA1.72cm2 AI P 1/2 Hyzi823.62ms Pulmonic Valve V20.87m/s Conclusion MODERATE DEGREE LVH AND MODERATE DEGREE LV DIASTOLIC DYSFUNCTION DISTAL HALF OF IVS AND ANTERIOR WALL IS HYPOKINETIC DUE TO RECENT ANTERIOR WALL DE LV EF IS 35% AND IS REDUCED MODERATELY DILATED LA MODERATELY CALCIFIED AORTIC LEAFLETS MODERATE DEGREE AORTIC REGURGITATION BORDERLINE MILD AORTIC STENOSIS AORTIC VALVE AREA IS 1.72 CM SQUARE AND IS REDUCED NO EFFUSION
[2025-04-13] MEDS: ATORVASTATIN 20 MG TAB PO SCH (21:58)
[2025-04-13] MEDS ORDERED: ATORVASTATIN 20 MG TAB PO SCH (22:00)
[2025-04-14] VITALS (91 sets, daily range): BP systolic 98–173; BP diastolic 49–93; PULSE 70–103; RESP 10–26; TEMP 97.8–99.4; O2SAT 90–99
--- NOTE | 2025-04-14 00:19 | DVHOP ---
DATE OF SURGERY: 04/13/2025 TECHNIQUE PERFORMED: * Code STEMI. * Insertion of a 6-Iraqi arterial line from the right femoral artery under ultrasound guidance and fluoroscopic guidance. * Left heart cath. * Left ventriculogram. * [place] selective left and right coronary artery angiography. * Management of conscious sedation. ASSISTANTS: Assisted by our staff here is Thong Haile Angie and Tyshawn. The procedure was done at about 4:30 to 5:00 in the morning. INDICATIONS: Code STEMI was called. Troponin in many thousands. ST elevation in I, aVL, anteroseptal lead and 10/10 chest pain. DESCRIPTION OF PROCEDURE: The risks and benefits had been explained. The patient had been brought to the analytical laboratory technician. The right groin was shaved, was cleaned with soap and Betadine. A 6-Iraqi arterial line was placed in a standard manner under fluoroscopy and subsequently right groin angiography with the help of pigtail catheter left heart catheterization had been done. The left ventriculogram was done in the right anterior oblique view with a total of 20 mL of dye. Post-LV gram, left ventricular angiography had been performed with the help of pull-through technique. Aortic pressure also has been performed with the help of pull-through technique. Aortic pressure was also performed. J-wire was passed. Pigtail catheter also had been discontinued. IMPRESSION: * Normal left main. * The left anterior descending artery proximal one-third region after giving . * The circumflex and obtuse marginal arteries are normal. * The right coronary artery is widely open, normal. * Ejection fraction is 30% remarkably hypokinetic. PLAN OF ACTION: Advised to undergo the intervention of the left anterior descending artery immediately at this time. Azeem Mauricio MD MP/JULIET/LUIS TID: [id number] RECEIPT: [id number] SHARON
--- NOTE | 2025-04-14 03:12 | DVHOP ---
DATE OF SURGERY: 04/13/2025 TECHNIQUE: 1. Code STEMI. 2. Insertion of a 6-Faroese arterial line from the right femoral artery under fluoroscopic guidance. 3. Left coronary angiography. 4. Mechanical thrombectomy of the left anterior descending artery [place] catheter. 5. Balloon angioplasty of the mid region of the left anterior descending artery with 2.5 x 15 mm noncompliant balloon. 6. Stenting and angioplasty of the proximal to mid region of the left anterior descending artery with 2.75 x 22 mm in length [place] stent from [employer] (drug eluding stent). 7. Balloon angioplasty of the entire stent of left anterior descending artery with 3.0 x 15 mm noncompliant balloon in mid artery expanded up to 3.25 mm in size. 8. Intracoronary administration of the Integrilin 20 mL bolus. 9. Right iliofemoral artery angiography. 10. Arteriotomy, Angio-Seal of the right femoral artery. 11. Intravascular ultrasound of the left main and also the left anterior descending artery. COMPLICATIONS: None. ASSISTANTS: Assisted by our staff here is Nori Haile Paul and Steven. DATE AND TIME OF SURGERY: Monday at about 5 o'clock in the morning. INDICATION: Code STEMI, acute anterior wall myocardial infarction. DESCRIPTION OF PROCEDURE: Risks and benefits discussed in standard manner. The patient was urgently brought to our laborer tanbark. Indications, risks, benefits, alternatives explained. The right groin was shaved, cleaned with soap and Betadine. A 6-Faroese arterial line was placed. A 3.0 XB cannula was passed and left coronary angiography was done. Subsequently it was noted left anterior descending artery had 100% occluded at the proximal one-third of the region. Now, we have put the Whisper wire and able to go into the left anterior descending artery at the site of 100% occluded. It was very difficult to find a place where the site of the origin of the left anterior descending artery. The first and second diagonal artery normal. artery normal. We have put an XB 3.0 guiding catheter and then put a Whisper wire. We were able to go into the left anterior descending artery and then we again put another Runthrough wire. diagonal artery. Then, we did with the help of XB catheter and then put a balloon 2.5 x 15 mm and balloon angioplasty was done. we put a stent 2.75 x 22. Stent was fully deployed, a total of 17 atmospheres. Stent size was made up to 2.9 cm size. Subsequently, we did intravascular ultrasound. We found there was still a gap between the stent and the media, now we put a noncompliant balloon 3.0 x 15 mm and balloon angioplasty was done of entire stented region all the way up to 21 atmospheres. The stent size was increased to 3.25-mm right proximal, mid, and distal. Procedure went well. Intracoronary Integrilin was also been given and the procedure had been completed. We also done also had been done. CONCLUSION: * Prior to performing the procedure #1, the left anterior descending artery after the proximal one-third region, it gives a right diagonal branch at the same site. The left anterior descending artery 100% acute occlusion, ASTER 0 flow. * Post procedure ASTER grade 3 flow. There is no spasm. No dissection. No thrombosis. * The artery size is now 3.25 mm in size and ASTER grade 3 flow noted. There is no evidence of any residual stenosis. PLAN OF ACTION: Advised aspirin, Brilinta, beta-carin and cholesterol-reducing medicine, and outpatient followup. Azeem Mauricio MD MP/JOSE/LUIS TID: [id number] RECEIPT: [id number] SHARON
[2025-04-14 03:38] LABS: Hematocrit 46.0 % (41.0-53.0); Hemoglobin 16.3 g/dL (13.5-17.5); Mean Corpuscular Hemoglobin 32.0 pg (28.0-32.0); Mean Corpuscular Volume 90.5 fL (80.0-100.0); Nucleated Red Blood Cells % 0.1 %
[2025-04-14 03:52] LABS: Albumin 3.8 g/dL (3.2-4.8); Anion Gap 12 (5-15); BUN/Creatinine Ratio 12.5 (10.0-20.0); Blood Urea Nitrogen 14 mg/dL (9-23); Calcium 8.8 mg/dL (8.7-10.4); Carbon Dioxide 24 mmol/L (20-31); Chloride 103 mmol/L (98-107); Magnesium 2.1 mg/dL (1.6-2.6); Potassium 4.0 mmol/L (3.5-5.1); Sodium 139 mmol/L (136-145); Total Protein 6.1 g/dL (5.7-8.2)
[2025-04-14 04:14] LABS: Alanine Aminotransferase 56 U/L (7-40); Alkaline Phosphatase 45 U/L (46-116); Bilirubin, Total 2.0 mg/dL (0.2-1.0); Glucose 114 mg/dL (74-106)
[2025-04-14] MEDS ORDERED: LOSA-535 PO ×2 (08:36→18:42)
[2025-04-14] MEDS ORDERED: ATOR-507 PO (08:36)
[2025-04-14] MEDS ORDERED: METO-289 PO ×2 (08:36→18:42)
[2025-04-14] MEDS ORDERED: CANA1TAB PO (08:36)
--- NOTE | 2025-04-14 09:29 | ECG ---
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
[2025-04-14 11:41] LABS: Hepatitis A Total Antibody Positive (Negative); Hepatitis B Surface Antigen Negative (Negative); Hepatitis C Antibody Negative (Negative)
[2025-04-14] MEDS ORDERED: ATOR40TA52 PO (18:42)
[2025-04-14] MEDS ORDERED: TICA90TA PO (18:42)
[2025-04-14] MEDS ORDERED: ASPI-325 PO (18:42)
--- NOTE | 2025-04-14 18:45 | DVHPN2 ---
Assessment/Plan Assessment/Plan progress note 74 M with NIDDM, HTN admitted for chest pain as STEMI. s/p PCI CONRAD x1 LAD seen today. echo. meds to bed, OOBTC, tele physical exam aox4 comfortable on RA clear breath sounds s1 s2 rrr abdomen tender, soft no LE edema labs ekg imaging reviewed assessment and plan STEMI s/p PCI CONRAD x1 transaminitis NIDDM HTN HFpEF asa brilinta Lipitor start bb resume home meds ISS diet cardiac dvt ppx lovenox condition critical full code crit care time 45 minutes Plan discussed with: Patient My Orders Orders - JERRY CHAMBERS MD Procedure Category Date Status Time Oob To Chair LETTY 04/14/25 In Process 15:22 Pt Request For Service PT 04/14/25 Logged 15:22 Hemoglobin A1c LAB 04/15/25 Verified 04:00 Basic Metabolic Panel LAB 04/15/25 Verified 04:00 Complete Blood Count LAB 04/15/25 Verified 04:00 Communication Order ORDERS 04/14/25 Transmitted 18:43 Date of Service: Apr 14, 2025 Billing Provider: JERRY CHAMBERS MD Common Visit Codes: [id number] CARE 30-74 MIN JERRY CHAMBERS MD Apr 14, 2025 18:45
--- NOTE | 2025-04-14 21:58 | DVHPN2 ---
Progress Note - Dictate Date Seen: Apr 14, 2025 Medical Necessity Reason Pt with a Central, PICC or Fol: No Subjective No new complaints Tolerating diet No GI bleeding Persistent elevation in liver enzymes which I believe may be related to cardiac issues vital signs Vital Sign Date Time Temp Pulse Resp B/P (MAP) Pulse Ox O2 Delivery O2 Flow Rate FiO2 04/14/25 21:30 96 150/80 04/14/25 19:00 20 95 04/14/25 17:50 Nasal Cannula* 2 28 04/14/25 16:15 99.4 99.4 Total Intake and Output 04/13/25 04/13/25 04/14/25 15:00 23:00 07:00 Intake Total 360 ml 1240 ml 300 ml Output Total 1600 ml 450 ml Balance 360 ml -360 ml -150 ml medications Current Medications Medications Dose Ordered Sig/Marlin Route Start Time Stop Time Status Last Admin Dose Admin Losartan Potassium 50 mg DAILY PO 04/13/25 10:00 04/14/25 10:19 50 MG Atorvastatin Calcium 40 mg HS PO 04/13/25 22:00 04/14/25 21:30 40 MG Metoprolol Tartrate 25 mg BID PO 04/13/25 10:00 04/14/25 21:30 25 MG Aspirin 81 mg DAILY PO 04/13/25 10:00 04/14/25 10:19 81 MG Diagnostic Test (Pha) 1 strip ACHS 04/13/25 07:00 04/14/25 21:31 1 STRIP Insulin Human Regular ACHS SC 04/13/25 07:00 04/14/25 21:36 4 UNITS Dextrose 50 ml UD PRN IV 04/13/25 04:00 Acetaminophen 650 mg Q6HP PRN PO 04/13/25 04:00 Enoxaparin Sodium 40 mg DAILY SC 04/13/25 10:00 04/14/25 10:19 40 MG Ticagrelor 90 mg BID PO 04/13/25 10:00 04/14/25 21:30 90 MG objective aox4 comfortable on RA clear breath sounds s1 s2 rrr abdomen tender, soft no LE edema laboratory and microbiology Laboratory Tests 04/14/25 02:40 Test 04/14/25 02:40 Range/Units Serum Glucose 114 H 74-106 mg/dL Problems(with codes): (1) ST elevation (STEMI) myocardial infarction of unspecified site (2) Elevated liver enzymes (3) Leukocytosis, unspecified (4) Hyperglycemia (5) STEMI (ST elevation myocardial infarction) (6) Acute chest pain Prognosis Assessment plan Likely cause of elevation of liver enzymes is related to his ongoing cardiac ischemia and STEMI Continue to monitor labs Liver ultrasound showed cholelithiasis without cholecystitis otherwise normal exam Hepatitis panel is negative I will follow up patient with you Plan discussed with: Patient, Other (Nurse) YENNI MAGALLANES MD Apr 14, 2025 21:58
--- NOTE | 2025-04-14 22:39 | DVHPN2 ---
Progress Note - Dictate Date Seen: Apr 14, 2025 Medical Necessity Reason Pt with a Central, PICC or Fol: No Subjective Patient was seen and evaluated in follow up in the ICU. Patient is on 2 LPM NC. Patient underwent emergent left heart cath, [place] selective left and right coronary artery angiography, left coronary angiography, mechanical thrombectomy of the left anterior descending artery, balloon angioplasty of the mid region of the left anterior descending artery, stenting and angioplasty of the proximal to mid region of the left anterior descending artery, balloon angioplasty of the entire stent of left anterior descending artery, intracoronary administration of the Integrilin 20 mL bolus. The patient is advised for aspirin, Brilinta, beta- carin and cholesterol-reducing medicine, and outpatient followup. Echocardiogram shows LV EF of 35%. vital signs Vital Sign Date Time Temp Pulse Resp B/P (MAP) Pulse Ox O2 Delivery O2 Flow Rate FiO2 04/14/25 22:00 101 11 173/93 (119) 96 04/14/25 22:00 Nasal Cannula* 2 28 04/14/25 20:00 99.1 99.1 Total Intake and Output 04/13/25 04/13/25 04/14/25 15:00 23:00 07:00 Intake Total 360 ml 1240 ml 300 ml Output Total 1600 ml 450 ml Balance 360 ml -360 ml -150 ml medications Current Medications Medications Dose Ordered Sig/Marlin Route Start Time Stop Time Status Last Admin Dose Admin Losartan Potassium 50 mg DAILY PO 04/13/25 10:00 04/14/25 10:19 50 MG Atorvastatin Calcium 40 mg HS PO 04/13/25 22:00 04/14/25 21:30 40 MG Metoprolol Tartrate 25 mg BID PO 04/13/25 10:00 04/14/25 21:30 25 MG Aspirin 81 mg DAILY PO 04/13/25 10:00 04/14/25 10:19 81 MG Diagnostic Test (Pha) 1 strip ACHS 04/13/25 07:00 04/14/25 21:31 1 STRIP Insulin Human Regular ACHS SC 04/13/25 07:00 04/14/25 21:36 4 UNITS Dextrose 50 ml UD PRN IV 04/13/25 04:00 Acetaminophen 650 mg Q6HP PRN PO 04/13/25 04:00 Enoxaparin Sodium 40 mg DAILY SC 04/13/25 10:00 04/14/25 10:19 40 MG Ticagrelor 90 mg BID PO 04/13/25 10:00 04/14/25 21:30 90 MG objective GENERAL: Alert and oriented x 3. No acute distress. EYES: PERRL, EOMI. Anicteric. HENT: Moist mucous membranes. LUNGS: Clear to auscultation bilaterally. CARDIOVASCULAR: Regular rate and rhythm. ABDOMEN: Soft, nontender and nondistended. EXTREMITIES: No edema. NEUROLOGIC: No focal neurological deficits. SKIN: Warm, dry. laboratory and microbiology Laboratory Tests 04/14/25 02:40 Test 04/14/25 02:40 Range/Units Serum Glucose 114 H 74-106 mg/dL Problem List Acute chest pain. STEMI (ST elevation myocardial infarction). Hyperglycemia. Leukocytosis, unspecified. Elevated liver enzymes. Generalized weakness. ST elevation (STEMI) myocardial infarction of unspecified site. Assessment/Plan Continued all current supportive medical care. Aspirin, Lipitor, Brilinta, Metoprolol. DVT prophylactics. Losartan. Additional plan as per the hospital course. Critical care time of 45 minutes provided to include time spent evaluation of patient at bedside, when appropriate patient/family education for diagnosis, treatment plan, review of pertinent medical information and discussion of care with specialty providers and PCP. Plan discussed with: Patient STEVE RAPHAEL MD Apr 14, 2025 22:39
[2025-04-15 01:01] VITALS: BP 148/86; PULSE 84; RESP 17; TEMP 97.8; O2SAT 98
[2025-04-15 05:00] VITALS: BP 103/58; PULSE 78; RESP 16; TEMP 98.2; O2SAT 94
[2025-04-15 05:52] LABS: Hematocrit 49.7 % (41.0-53.0); Hemoglobin 17.4 g/dL (13.5-17.5); Mean Corpuscular Hemoglobin 32.2 pg (28.0-32.0); Mean Corpuscular Volume 92.0 fL (80.0-100.0); Nucleated Red Blood Cells % 0.0 %
[2025-04-15 06:04] LABS: Chloride 103 mmol/L (98-107); Potassium 4.6 mmol/L (3.5-5.1); Sodium 141 mmol/L (136-145)
[2025-04-15 06:05] LABS: Anion Gap 10 (5-15); Calcium 9.1 mg/dL (8.7-10.4); Carbon Dioxide 28 mmol/L (20-31)
[2025-04-15 06:10] LABS: BUN/Creatinine Ratio 12.6 (10.0-20.0); Blood Urea Nitrogen 13 mg/dL (9-23)
[2025-04-15 06:19] LABS: Glucose 129 mg/dL (74-106)
[2025-04-15 08:00] VITALS: PULSE 82
[2025-04-15 08:31] VITALS: BP 139/85; PULSE 84; RESP 18; TEMP 98.7; O2SAT 96
[2025-04-15 12:14] VITALS: BP 137/85; PULSE 72; RESP 17; TEMP 97.3; O2SAT 95
[2025-04-15] MEDS ORDERED: METO-289 PO (13:47)
[2025-04-15] MEDS ORDERED: ASPI81TA28 PO (13:47)
[2025-04-15] MEDS ORDERED: ATOR40TA52 PO (13:47)
[2025-04-15] MEDS ORDERED: LOSA-535 PO (13:47)
[2025-04-15] MEDS ORDERED: TICA90TA PO (13:47)
--- NOTE | 2025-04-15 13:49 | DVHDS2 ---
Discharge Summary Date of Admission Apr 13, 2025 at 03:59 Date of Discharge: Apr 15, 2025 Labs/Diagnostic Data: Laboratory Results Test 04/15/25 11:25 04/15/25 04:50 04/14/25 02:40 04/13/25 09:03 POC Glucose 227 mg/dl (70-106) White Blood Count 10.3 10^3/uL (4.4-10.8) Red Blood Count 5.40 10^6/uL (4.5-5.90) Hemoglobin 17.4 g/dL (13.5-17.5) Hematocrit 49.7 % (41.0-53.0) Mean Corpuscular Volume 92.0 fL (80.0-100.0) Mean Corpuscular Hemoglobin 32.2 pg (28.0-32.0) Mean Corpuscular Hemoglobin Concent 35.0 g/dL (32.0-36.0) Red Cell Distribution Width 13.9 % (11.8-14.3) Platelet Count 147 10^3/uL (140-450) Mean Platelet Volume 9.0 fL (6.9-10.8) Neutrophils (%) (Auto) 69.2 % (37.0-80.0) Lymphocytes (%) (Auto) 18.6 % (10.0-50.0) Monocytes (%) (Auto) 11.3 % (0.0-12.0) Eosinophils (%) (Auto) 0.6 % (0.0-7.0) Basophils (%) (Auto) 0.3 % (0.0-2.0) Neutrophils # (Auto) 7.1 10 ^3/uL (1.6-8.6) Lymphocytes # (Auto) 1.9 10 ^3/uL (0.4-5.4) Monocytes # (Auto) 1.2 10 ^3/uL (0-1.3) Eosinophils # (Auto) 0.1 10 ^3/uL (0-0.8) Basophils # (Auto) 0 10 ^3/uL (0-0.2) Nucleated Red Blood Cells 0.0 % Sodium Level 141 mmol/L (136-145) Potassium Level 4.6 mmol/L (3.5-5.1) Chloride Level 103 mmol/L (98-107) Carbon Dioxide Level 28 mmol/L (20-31) Anion Gap 10 (5-15) Blood Urea Nitrogen 13 mg/dL (9-23) Creatinine 1.03 mg/dL (0.700-1.30) Glomerular Filtration Rate Calc 77 mL/min (>90) BUN/Creatinine Ratio 12.6 (10.0-20.0) Serum Glucose 129 mg/dL (74-106) Hemoglobin A1c 7.7 % A1C (<5.7) Calcium Level 9.1 mg/dL (8.7-10.4) Magnesium Level 2.1 mg/dL (1.6-2.6) Total Bilirubin 2.0 mg/dL (0.2-1.0) Aspartate Amino Transferase (AST) 292 U/L (13-40) Alanine Aminotransferase (ALT) 56 U/L (7-40) Alkaline Phosphatase 45 U/L (46-116) Total Protein 6.1 g/dL (5.7-8.2) Albumin 3.8 g/dL (3.2-4.8) Hepatitis A Antibody Total Positive (Negative) Hepatitis B Surface Antigen Negative (Negative) Hepatitis B Surface Antibody Negative (Negative) Hepatitis B Core Total Antibody Negative (Negative) Hepatitis C Antibody Negative (Negative) Troponin I High Sensitivity > 10142 ng/L (</=54) Test 04/13/25 03:03 04/13/25 01:54 Prothrombin Time 10.9 sec (9.3-11.8) Prothrombin Time INR 1.03 (0.9-1.15) Activated Partial Thromboplast Time 31.6 SEC (24.5-34.5) B-Type Natriuretic Peptide 374.47 pg/mL (0-100) Lipase 37 U/L (12-53) Other Laboratory Tests 04/15/25 04:50 Final Diagnosis/Problems List nstemi Discharge Disposition: Home Discharge Instruct/Medications Diet: Consistent carbohydrate, Cardiac 2g Na,low cholest Activity: No Restrictions, As Tolerated Medications: asa brilinta metop losartan lipitor Scheduled Aspirin (Aspirin Ec), 81 MG PO DAILY Atorvastatin Calcium (Lipitor), 1 TAB PO DAILY, (Reported) Atorvastatin Calcium (Atorvastatin Calcium), 1 TAB PO DAILY Canagliflozin-Metformin HCl (Invokamet 50-500 mg), 2 TAB PO DAILY, (Reported) Losartan Potassium (Losartan Potassium), 1 TAB PO DAILY, (Reported) Losartan Potassium (Losartan Potassium), 1 TAB PO DAILY Metoprolol Succinate (Metoprolol Succinate Er), 50 MG PO DAILY, (Reported) Metoprolol Succinate (Metoprolol Succinate Er), 1 TAB PO DAILY Ticagrelor Base (Brilinta), 90 MG PO BID Discharge Statement: "Patient was advised to return to the ER or call 911 if any headaches, dizziness, shortness of breath, chest pain, abdominal pain, bleeding, fevers, or worsening of medical condition. Patient was counseled about treatment plan, medications, possible side effects, patientverbalized understanding. All questions were answered to the best of my ability. This discharge took greater then 30 minutes in planning, reviewing documentation, counseling the patient, and discussing with other team members." ASSESSMENT ASSESSMENT Assessment nstemi Date of Service: Apr 15, 2025 Billing Provider: JERRY CHAMBERS MD Common Visit Codes: 49556-AUY/OBS DISCH DAY >30min JERRY CHAMBERS MD Apr 15, 2025 13:49
--- NOTE | 2025-04-15 21:11 | DVHPN2 ---
Progress Note - Dictate Date Seen: Apr 15, 2025 (Late entry Time of visit 4 p.m.) Medical Necessity Reason Pt with a Central, PICC or Fol: No Subjective No new complaints Tolerating diet No GI bleeding Persistent elevation in liver enzymes which I believe may be related to cardiac issues vital signs Vital Sign Date Time Temp Pulse Resp B/P (MAP) Pulse Ox O2 Delivery O2 Flow Rate FiO2 04/15/25 12:14 97.3 72 17 137/85 (102) 95 97.3 04/15/25 08:00 Room Air* 0 21 Total Intake and Output 04/14/25 04/14/25 04/15/25 15:00 23:00 07:00 Intake Total 750 ml 800 ml Output Total 0 ml 525 ml 600 ml Balance 0 ml 225 ml 200 ml objective aox4 comfortable on RA clear breath sounds s1 s2 rrr abdomen tender, soft no LE edema laboratory and microbiology Laboratory Tests 04/15/25 04:50 Test 04/15/25 04:50 Range/Units Serum Glucose 129 H 74-106 mg/dL Problems(with codes): (1) ST elevation (STEMI) myocardial infarction of unspecified site (2) Elevated liver enzymes (3) Leukocytosis, unspecified (4) Hyperglycemia (5) Generalized weakness (6) Acute chest pain (7) STEMI (ST elevation myocardial infarction) Prognosis Plan Discharge planning is in progress Outpatient follow up with PCP and GI as needed to monitor his liver enzymes Patient is going to follow up with Cardiology and discharged on asa, Brilinta, metoprolol, losartan, Lipitor Plan discussed with: Patient YENNI MAGALLANES MD Apr 15, 2025 21:11
--- NOTE | 2025-04-16 03:01 | DVHPN2 ---
Progress Note - Dictate Date Seen: Apr 15, 2025 Medical Necessity Reason Pt with a Central, PICC or Fol: No Subjective Patient was seen and evaluated in follow up. Patient has no new complaints at this time. Patient denies any cardiac symptoms. Patient is cardiac stable for discharge. Telemetry reviewed. vital signs Vital Sign Date Time Temp Pulse Resp B/P (MAP) Pulse Ox O2 Delivery O2 Flow Rate FiO2 04/15/25 12:14 97.3 72 17 137/85 (102) 95 97.3 04/15/25 08:00 Room Air* 0 21 Total Intake and Output 04/14/25 04/14/25 04/15/25 15:00 23:00 07:00 Intake Total 750 ml 800 ml Output Total 0 ml 525 ml 600 ml Balance 0 ml 225 ml 200 ml medications Current Medications Medications Dose Ordered Sig/Marlin Route Start Time Stop Time Status Last Admin Dose Admin Losartan Potassium 50 mg DAILY PO 04/13/25 10:00 04/15/25 09:28 50 MG Atorvastatin Calcium 40 mg HS PO 04/13/25 22:00 04/14/25 21:30 40 MG Metoprolol Tartrate 25 mg BID PO 04/13/25 10:00 04/15/25 09:29 25 MG Aspirin 81 mg DAILY PO 04/13/25 10:00 04/15/25 09:28 81 MG Diagnostic Test (Pha) 1 strip ACHS 04/13/25 07:00 04/15/25 11:39 1 STRIP Insulin Human Regular ACHS SC 04/13/25 07:00 04/15/25 11:39 4 UNITS Dextrose 50 ml UD PRN IV 04/13/25 04:00 Acetaminophen 650 mg Q6HP PRN PO 04/13/25 04:00 Enoxaparin Sodium 40 mg DAILY SC 04/13/25 10:00 04/15/25 09:28 40 MG Ticagrelor 90 mg BID PO 04/13/25 10:00 04/15/25 09:28 90 MG objective GENERAL: Alert and oriented x 3. No acute distress. EYES: PERRL, EOMI. Anicteric. HENT: Moist mucous membranes. LUNGS: Clear to auscultation bilaterally. CARDIOVASCULAR: Regular rate and rhythm. ABDOMEN: Soft, nontender and nondistended. EXTREMITIES: No edema. NEUROLOGIC: No focal neurological deficits. SKIN: Warm, dry. laboratory and microbiology Laboratory Tests 04/15/25 04:50 Test 04/15/25 04:50 Range/Units Serum Glucose 129 H 74-106 mg/dL Problem List Acute chest pain. STEMI (ST elevation myocardial infarction). Hyperglycemia. Leukocytosis, unspecified. Elevated liver enzymes. Generalized weakness. ST elevation (STEMI) myocardial infarction of unspecified site. Assessment/Plan Continued all current supportive medical care. Aspirin, Brilinta, Metoprolol. DVT prophylactics. Losartan. Tylenol for pain management. Additional plan as per the hospital course. Plan discussed with: Patient STEVE RAPHAEL MD Apr 15, 2025 13:42
== END 2025-04-15 16:49 | disposition home or self-care (01) | DRG 321 ==
LOC: ER 01:30 → EEVIPCON 01:30 → OVERFLOW 03:59 → ICU CENTRL 05:55 → TELE-CENTR 04-14 22:45
PROVIDERS: ADMIT Student in an Organized Health Care Education/Training Program; ATTEND Student in an Organized Health Care Education/Training Program
PROC: 04HY32Z Insertion of Monitoring Device into Lower Artery, Percutaneous Approach (ICD-10-PCS; principal; 2025-04-13)
PROC: 4A023N7 Measurement of Cardiac Sampling and Pressure, Left Heart, Percutaneous Approach (ICD-10-PCS; 2025-04-13)
PROC: 027034Z Dilation of Coronary Artery, One Artery with Drug-eluting Intraluminal Device, Percutaneous Approach (ICD-10-PCS; 2025-04-13)
PROC: B215YZZ Fluoroscopy of Left Heart using Other Contrast (ICD-10-PCS; 2025-04-13)
PROC: B240ZZ3 Ultrasonography of Single Coronary Artery, Intravascular (ICD-10-PCS; 2025-04-13)
PROC: B211YZZ Fluoroscopy of Multiple Coronary Arteries using Other Contrast (ICD-10-PCS; 2025-04-13)
PROC: B41FYZZ Fluoroscopy of Right Lower Extremity Arteries using Other Contrast (ICD-10-PCS; 2025-04-13)
DX: I21.09 ST elevation (STEMI) myocardial infarction involving other coronary artery of anterior wall (principal); J96.01 Acute respiratory failure with hypoxia; I50.30 Unspecified diastolic (congestive) heart failure; E11.65 Type 2 diabetes mellitus with hyperglycemia; I11.0 Hypertensive heart disease with heart failure; Z79.84 Long term (current) use of oral hypoglycemic drugs; Z95.5 Presence of coronary angioplasty implant and graft; Z79.899 Other long term (current) drug therapy
CPT/HCPCS: 36415; 71045; 76705; 80048; 80053; 82962; 83036; 83690; 83735; 83880; 84484; 85025; 85610; 85730; 86704; 86706; 86708; 86803; 87081; 87340; 92941; 92978; 93005; 93306; 93458; 96374; 96375; 97163; 99152; 99291; G0378; J1815; J2250; J2405; J3490; Q9967

== ENCOUNTER 2025-04-19 10:18 | Emergency (ER) | payer OTHER, MEDICAID ==
[~2025-04-19] VITALS: Ht 167.6 cm; Wt 81.9 kg
[~2025-04-19 10:18] MED LIST: ASPI81TA28 PO; ATOR40TA52 PO; CANA1TAB PO; LOSA-535 PO; METO-289 PO; TICA90TA PO
[2025-04-19 10:23] VITALS: BP 154/92; PULSE 81; RESP 16; TEMP 97.6; O2SAT 97
--- NOTE | 2025-04-19 10:48 | ED.PDOC ---
History of Present Illness HPI Comments A 74 YEAR OLD MALE ACCOMPANIED BY DAUGHTER, PRESENTS TO THE ED WITH AN EVALUATION OF A WOUND CHECK. DAUGHTER REPORTS PATIENT HAD AN ANGIOGRAM DONE ON 04/13/25 AND HAD A STENT PLACED BY DR RAPHAEL ON THE RIGHT GROIN S/P MO DIAGNOSIS. PATIENT IS ASYMPTOMATIC AND STATES HE IS SOLELY HERE TO GET HIS WOUND CHECKED HE HAS NO F/U APPOINTMENT SOON BUT WANTS TO AVOID DEVELOPMENT OF INFECTION. PATIENT DENIES FEVER, CHILLS, SHORTNESS OF BREATH, CHEST PAIN, ABDOMINAL PAIN, NAUSEA, VOMITING, HEADACHE, OR OTHER COMPLAINTS. NO OTHER SYMPTOMS OR MODIFYING FACTORS AT THIS TIME. PATIENT IS ALERT, ORIENTED X 4, AND HAS STEADY GAIT. Chief Complaint: Wound Check Time Seen by MD: 10:37 Primary Care Provider: FLORENCE Reviewed Notes: Nurses Notes, Medications, Allergies Allergies: Coded Allergies: NO KNOWN ALLERGIES (Unverified , 09/08/15) Home Meds Active Scripts Metoprolol Succinate (Metoprolol Succinate Er) 50 Mg Tab, 1 TAB PO DAILY for 90 Days, #90 TAB 1 Refill Prov:JERRY CHAMBERS MD 04/15/25 Ticagrelor Base (BRILINTA) 90 Mg Tab, 90 MG PO BID for 90 Days, #180 TAB 1 Refill Prov:JERRY CHAMBERS MD 04/15/25 Losartan Potassium (Losartan Potassium) 100 Mg Tab, 1 TAB PO DAILY, #90 TAB 1 Refill Prov:JERRY CHAMBERS MD 04/15/25 Aspirin (Aspirin Ec) 81 Mg Tab, 81 MG PO DAILY for 90 Days, #90 TAB 1 Refill Prov:JERRY CHAMBERS MD 04/15/25 Atorvastatin Calcium (ATORVASTATIN CALCIUM) 40 Mg Tab, 1 TAB PO DAILY, #90 TAB 1 Refill Prov:JERRY CHAMBERS MD 04/15/25 Reported Medications Canagliflozin-Metformin HCl (Invokamet 50-500 mg) 1 Tab Tab, 2 TAB PO DAILY, TAB 04/14/25 Discontinued Reported Medications Metoprolol Succinate (Metoprolol Succinate Er) 50 Mg Tab, 50 MG PO DAILY for 30 Days, MG 04/14/25 Atorvastatin Calcium (Lipitor) 40 Mg Tab, 1 TAB PO DAILY, #30 TAB 5 Refills 04/14/25 Losartan Potassium (Losartan Potassium) 100 Mg Tab, 1 TAB PO DAILY, #30 TAB 5 Refills 04/14/25 Information Source: Patient Mode of Arrival: Ambulatory Timing: Days Duration: Since onset Medication Refill: For: Other (RIGHT GROIN REGION WOUND RECHECK ) Past Medical History PAST MEDICAL HISTORY: DM, HTN, [place] Surgical History: PTCA Family History Family History: Reviewed,noncontributory to illness Social History Smoker: Non-Smoker Alcohol: Denies ETOH Use Drugs: Denies Drug Use Lives In: Home Constitutional: denies: chills, diaphoresis, fatigue, fever, malaise, sweats, weakness, others EENTM: denies: blurred vision, double vision, ear bleeding, ear discharge, ear drainage, ear pain, ear ringing, eye pain, eye redness, hearing loss, mouth pain, mouth swelling, nasal discharge, nose bleeding, nose congestion, nose pain, photophobia, tearing, throat pain, throat swelling, voice changes, others Respiratory: denies: cough, hemoptysis, orthopnea, SOB at rest, shortness of breath, SOB with excertion, stridor, wheezing, others Cardiovascular: denies: chest pain, dizzy spells, diaphoresis, Dyspnea on exertion, edema, irregular heart beat, left arm pain, lightheadedness, palpitations, PND, syncope, others Gastrointestinal: denies: abdomen distended, abdominal pain, blood streaked bowels, constipated, diarrhea, dysphagia, difficulty swallowing, hematemesis, melena, nausea, poor appetite, poor fluid intake, rectal bleeding, rectal pain, vomiting, others Genitourinary: denies: burning, dysuria, flank pain, frequency, hematuria, incontinence, penile discharge, penile sore, pain, testicle pain, testicle swelling, urgency, others Neurological: denies: dizziness, fainting, headache, left sided numbness, left sided weakness, numbness, paresthesia, pre-existing deficit, right sided numbness, right sided weakness, seizure, speech problems, tingling, tremors, weakness, others Musculoskeletal: denies: back pain, gout, joint pain, joint swelling, muscle p ain, muscle stiffness, neck pain, others Integumetry: reports: wounds (RIGHT GROIN SITE ); denies: bruises, change in color, change in hair/nails, dryness, laceration, lesions, lumps, rash, others Allergic/Immunocompromised: denies: Difficulty Healing, Frequent Infections, Hives, Itching, others Hematologic/Lymphatic: denies: anemia, blood clots, easy bleeding, easy bruising, swollen glands, others Endocrine: denies: excessive hunger, excessive sweating, excessive thirst, excessive urination, flushing, intolerance to cold, intolerance to heat, unexplained weight gain, unexplained weight loss, others Psychiatric: denies: anxiety, bipolar disorder, depression, hopeless, panic disorder, schizophrenia, sleepless, suicidal, others All Other Systems: Reviewed and Negative Physical Exam General Appearance: No Apparent Distress, Normal HEENT: Normal ENT Inspection, PERRL/EOMI, Pharynx Normal, TMs Normal Neck: Full Range of Motion, Non-Tender, Normal, Normal Inspection Respiratory: Chest Non-Tender, Lungs Clear, No Accessory Muscle Use, No Respiratory Distress, Normal Breath Sounds Cardiovascular: No Edema, No JVD, No Murmur, No Gallop, Normal Peripheral Pulses, Regular Rate/Rhythm Breast Exam: Deferred Gastrointestinal: No Organomegaly, Non Tender, No Pulsatile Mass, Normal Bowel Sounds, Soft Genitalia: Deferred Pelvic: Normal External Exam, Other (A SMALL INCISION WOUND ON RIGHT GROWN REGION, HEALED WOUND, NO REDNESS AND SWELLING, NO INFECTION SIGNS. ) Rectal: Deferred Extremities: No calf tenderness, Normal capillary refill, Normal inspection, Normal range of motion, Non-tender, No pedal edema Musculoskeletal : Apperance: Normal Neurologic: Alert, director trade II-XII nml as Tested, No Motor Deficits, Normal Affect, Normal Mood, No Sensory Deficits Cerebellar Function: Normal Reflexes: Normal Skin: Dry, Normal Color, Warm, Wounds (RIGHT GROIN SITE WOUND HEALED, NO INFECTION SIGNS. ) Peripheral Pulses: 2+ carotid (R), 2+ carotid (L), 2+ dorsalis pedis (R), 2+ dorsalis pedis (L) Lymphatic: No Adenopathy Was a procedure done? Was a procedure done?: No Differential Dx Considerations may include: WOUND RECHECK OF RIGHT GROIN SITE X-Ray, Labs, Meds, VS Vital Signs Date Time Temp Pulse Resp B/P (MAP) Pulse Ox O2 Delivery O2 Flow Rate FiO2 04/19/25 10:23 97.6 81 16 154/92 97 97.6 X-Ray, Labs, Meds, VS Comment EXTERNAL MEDICAL RECORDS REVIEWED: [NONE] INDEPENDENT HISTORIANS: [NONE] SOCIAL DETERMINANTS OF HEALTH: [NONE] LABS ORDERED: NONE REVIEWED AND INTERPRETED RESULTS: NONE IMAGING ORDERED: NONE TREATMENTS ORDERED: NONE PROCEDURES PERFORMED: WOUND LOCALIZED ON THE RIGHT SIDED GROIN PRESENTS CLEAN WITH NO ERYTHEMA, SWELLING OR DRAINAGE NOTED. HAS BEEN CLEANED CRITICAL CARE TIME: NONE I HAVE DISCUSSED THE PATIENT WITH THE ATTENDING PHYSICIAN, DR. GROVES, HE AGREES WITH THE PATIENT'S PLAN OF CARE AND DISPOSITION. BASED ON HISTORY OF PRESENT ILLNESS, AND PHYSICAL EXAM, PATIENT WILL BE DISCHARGED HOME. SHARED DECISION MAKING: DISCUSSED WITH PATIENT THAT THEIR WORKUP WAS NORMAL. PATIENT INSTRUCTED TO FOLLOW UP WITH PRIMARY CARE PROVIDER IN 1-2 DAYS FOR RE- EVALUATION OF SYMPTOMS. PATIENT VERBALIZES UNDERSTANDING TO RETURN TO ED FOR NEW OR WORSENING SYMPTOMS OR IF FOLLOW UP WITH PCP CANNOT BE OBTAINED. PATIENT FEELS COMFORTABLE GOING HOME AT THIS TIME. ALL QUESTIONS ADDRESSED AT TIME OF DISCHARGE. Time of 1ST Reevaluation: 10:42 Reevaluation 1ST: Improved Patient Education/Counseling: Diagnosis, Treatment, Need For Follow Up Family Education/Counseling: Diagnosis, Treatment, Need For Follow Up Medical Screening: No EMC Exist At This Time SEPSIS Sepsis Screen Date sepsis recognized/suspect: Apr 19, 2025 Time Sepsis recognized/suspect: 1026 Recent Procedure: No On Antibiotic Therapy: No Respiratory Rate >20: No Heart Rate >90: No Temp<36 C (96.8 F) or >38.3 C: No SBP <90 or MAP <65 mmHG: No New Acute Mental Status Change: No Is the patient on CPAP, BIPAP,: No Vital Signs Date Time Temp Pulse Resp B/P (MAP) Pulse Ox O2 Delivery O2 Flow Rate FiO2 04/19/25 10:23 97.6 81 16 154/92 97 97.6 Departure 1 Departure Time of Disposition: 11:00 Impression: Primary Impression: Visit for wound check Disposition: HOME / SELF CARE / HOMELESS Condition: Stable Additional Instructions: FOLLOW-UP WITH PCP IN 1 TO 2 DAYS. TAKE MEDICATIONS PRESCRIBED. RETURN TO ED FOR ANY NEW OR WORSENING SYMPTOMS. Discharged With: Self, Relative Critical Care Note Critical Care Time?: No Stability Stability form required: No I personally scribed for NIHARIKA LEMOS ([email or web address]) on 04/19/25 at 10:48. Electronically submitted by Emily Santiago ([facility]). NIHARIKA LEMOS Apr 19, 2025 10:48
== END 2025-04-19 10:58 | disposition home or self-care (01) ==
LOC: ER 10:18
DX: Z48.00 Encounter for change or removal of nonsurgical wound dressing (principal); E11.9 Type 2 diabetes mellitus without complications; I10 Essential (primary) hypertension; I25.2 Old myocardial infarction; Z79.82 Long term (current) use of aspirin; Z79.84 Long term (current) use of oral hypoglycemic drugs; Z79.899 Other long term (current) drug therapy